=== PATIENT | male | born 1945 | race Caucasian/White ===

== ENCOUNTER 2017-10-12 20:46 | Emergency (ER) | payer MEDICARE, OTHER ==
[~2017-10-12] VITALS: Ht 188 cm; Wt 127.0 kg
[~2017-10-12 20:46] MED LIST: ACEASPCAF PO; ACET500 PO; ACETAMINOPHEN500 MG PO; ALLO300 PO; ASPI81CH PO; ASPI81EC PO; Ativan1 MG PO; CALCIUM 500 +1 EAC3 PO; CARV6.25 PO; CLOP75 PO; CLOT10 PO; DOCU100 PO; Excedrin Extra1 EACH PO; FURO40 PO; Ferrous Sulfat325 M2 PO; GABA800 PO; HYDPAM25 PO; HYDR454TO TOP; Hydrocodone-Ap1 EA20 PO; IBUP400 PO; IBUP600 PO; IBUPROFEN200 MG PO; INSR10I SC; INSULANPEN SC; INSULIN; Ketoconazole15 GM TOP; LAVAP17G PO; LIDO700A20 TOP; LUBRICANT 0.5-015 ML RIGHTEYE; METH5 PO; METO2.5 PO; METO25 PO; METO25ER PO; MIRT15 PO; Nitrostat0.4 MG SL; Norco 5-325 Ta1 EACH PO; Novolog Fl100 UNIT/1 INJ; OMEP10ER PO; OMEP20ER PO; OMEPRAZOLE MAGN20 MG PO; ONDA4 PO; PENVK500 PO; PERIDEX15 ML PO; POTCHL20ER PO; POTCIT10 PO; PREG75 PO; RANI150 PO; Roxicodone5 MG PO; SENN187 PO; SIMV10 PO; SPIR25 PO; SPIR50 PO; TOLN1TC TOP; TOLN45 TOP; TRAM50 PO; TRAZ100; ZOLP10 PO; [UNRECOGNIZED DRUG - OTHER] SC
[2017-10-12 21:48] LABS: BASOPHILS ABSOLUTE AUTO 0.06 K/mm3 (0.00-0.23); BASOPHILS PERCENT AUTO 1 % (0-2); EOSINOPHILS ABSOLUTE AUTO 0.07 K/mm3 (0.00-0.68); EOSINOPHILS PERCENT AUTO 1 % (0-6); Hematocrit 32.4 % (37.0-53.0); Hemoglobin 10.9 g/dL (13.5-17.5); IMMATURE GRAN ABSOLUTE AUTO 0.01 K/mm3 (0.00-0.10); IMMATURE GRAN PERCENT AUTO 0 % (0-1); LYMPHOCYTES ABSOLUTE AUTO 1.07 K/mm3 (0.84-5.20); LYMPHOCYTES PERCENT AUTO 17 % (21-46); MONOCYTES ABSOLUTE AUTO 0.59 K/mm3 (0.16-1.47); MONOCYTES PERCENT AUTO 9 % (4-13); Mean Corpuscular HGB 30.5 pg (26.0-34.0); Mean Corpuscular HGB Conc 33.6 g/dL (31.5-36.5); Mean Corpuscular Volume 91 fL (80-100); Mean Platelet Volume 12.2 fL (9.1-12.4); NEUTROPHILS ABSOLUTE AUTO 4.63 K/mm3 (1.96-9.15); NEUTROPHILS PERCENT AUTO 72 % (41-73); Platelet Count 77 K/mm3 (150-400); RDW Coefficient Variation 15.6 % (11.7-14.2); RDW Standard Deviation 51.4 fL (35.1-46.3); Red Blood Cell Count 3.57 M/mm3 (4.30-5.90); White Blood Cell Count 6.43 K/mm3 (4.00-11.30)
[2017-10-12 22:01] LABS: International Normalized Ratio 1.1; Prothrombin Time Results 11.5 Sec (9.7-11.5)
[2017-10-12 22:05] LABS: Alanine Aminotransfer (ALT/SGP 58 U/L (12-78); Albumin/Globulin Ratio 0.6 (0.8-1.8); Alk Phos 286 U/L (50-136); Anion Gap 4 mmol/L (6-16); Aspartate Aminotrans (AST/SGOT 54 U/L (12-37); Bilirubin, Total 1.2 mg/dL (0.1-1.0); Blood Urea Nitrogen 26 mg/dL (8-24); Bun/Creatinine Ratio 22.8 (12.0-20.0); CO2, Blood 27 mmol/L (21-32); Calcium, Blood 8.7 mg/dL (8.5-10.1); Chloride, Blood 102 mmol/L (98-108); Creatinine, Blood 1.14 mg/dL (0.60-1.20); Ethanol (Alcohol), Blood, Med <3 mg/dL; Globulin, Blood 5.4 g/dL (2.2-4.0); Glomerular Filtration Rate >60 (60-); Glucose, Blood 226 mg/dL (70-99); Potassium, Blood 4.4 mmol/L (3.5-5.5); Sodium, Blood 133 mmol/L (136-145); Total Protein, Blood 8.4 g/dL (6.4-8.2)
[2017-10-12 23:45] LABS: Source, Urine Clean Catch
[2017-10-12 23:48] LABS: Bilirubin, Urine Neg (Neg); Blood, Urine 2+ (Neg); Glucose Qualitative, Urine 2+ (Neg); Ketones, Urine Neg (Neg); Leukocyte Esterase, Urine 2+ (Neg); Nitrite, Urine Neg (Neg); Protein, Urine 2+ (Neg); Urobilinogen, Urine NORM (Normal)
[2017-10-12 23:49] LABS: Appearance, Urine Hazy (Clear); Color, Urine Amber (P-Yellow)
[2017-10-13 00:08] LABS: Bacteria Few /hpf; Red Blood Cells, Urine 0-2 /hpf (0-2); Squamous Epithelial Cells Rare /hpf (Few); White Blood Cells, Urine 25-50 /hpf (0-5); Yeast/Fungi Urine Many /hpf
[2017-10-13] MEDS ORDERED: Cipro500 MG PO (00:15)
[2018-02-13] MEDS ORDERED: ASPI81CH PO (16:29)
[2018-02-13] MEDS ORDERED: CALAMINE LOTIO177 ML (16:29)
[2018-02-13] MEDS ORDERED: ALLO300 PO (16:29)
[2018-02-13] MEDS ORDERED: ERGO400 PO (16:30)
[2018-02-13] MEDS ORDERED: CALCIUM 500 +1 EAC2 PO (16:31)
[2018-02-13] MEDS ORDERED: Ferrous Sulfat325 M2 PO (16:31)
[2018-02-13] MEDS ORDERED: FURO40 PO (16:31)
[2018-02-13] MEDS ORDERED: HYDHCL25 PO (16:32)
[2018-02-13] MEDS ORDERED: HUMALOG JU100 UNIT/1 (16:33)
[2018-02-13] MEDS ORDERED: HUMULIN 70100 UNIT/2 SC (16:33)
[2018-02-13] MEDS ORDERED: LACT10SY PO (16:34)
[2018-02-13] MEDS ORDERED: NORT25 PO (16:35)
[2018-02-13] MEDS ORDERED: LORA1SY PO (16:35)
[2018-02-13] MEDS ORDERED: MELA3 PO (16:35)
[2018-02-13] MEDS ORDERED: METO25 PO (16:35)
[2018-02-13] MEDS ORDERED: PREG75 PO (16:37)
[2018-02-13] MEDS ORDERED: PANT40 PO (16:37)
[2018-02-13] MEDS ORDERED: RIFA550T2 PO (16:37)
[2018-02-13] MEDS ORDERED: SIMV10 PO (16:38)
[2018-02-13] MEDS ORDERED: TAMS.4ER PO (16:38)
[2018-02-13] MEDS ORDERED: Bactrim Ds Tab1 EACH PO (16:38)
[2018-02-13] MEDS ORDERED: SPIR50 PO (16:38)
[2018-02-22] MEDS ORDERED: GAVILAX17 GM PO (10:30)
[2018-02-22] MEDS ORDERED: ONDA4ODT SL (10:31)
[2018-02-22] MEDS ORDERED: LIDOCAINE PAIN1 EACH TOP (10:39)
[2018-02-22] MEDS ORDERED: PANT40 PO (10:39)
[2018-02-22] MEDS ORDERED: ESCI5 PO (10:40)
[2018-02-22] MEDS ORDERED: CARV6.25 PO (10:41)
[2018-02-22] MEDS ORDERED: Senna Plus Tab1 EACH PO (10:41)
[2018-02-22] MEDS ORDERED: INSULANPEN SC (10:42)
== END 2017-10-13 01:05 | disposition home or self-care (01) ==
LOC: ER 20:46
PROVIDERS: Emergency Medicine; Nurse Practitioner Family
DX: S80.02XA Contusion of left knee, initial encounter (principal); N39.0 Urinary tract infection, site not specified; W05.0XXA Fall from non-moving wheelchair, initial encounter; Z88.8 Allergy status to other drugs, medicaments and biological substances; Z79.899 Other long term (current) drug therapy; Z79.82 Long term (current) use of aspirin; Z79.4 Long term (current) use of insulin; E11.9 Type 2 diabetes mellitus without complications; E78.00 Pure hypercholesterolemia, unspecified
CPT/HCPCS: 73564; 80053; 81001; 82140; 85025; 85610; 87086; 87106; 93005; 93010; 99283; G0480

== ENCOUNTER 2017-12-28 15:09 | Emergency (ER) | payer MEDICARE, OTHER ==
[~2017-12-28] VITALS: Ht 188 cm; Wt 136.1 kg
[~2017-12-28 15:09] MED LIST changes: +Cipro500 MG PO
[2017-12-28] MEDS ORDERED: Ultram50 MG PO (16:03)
[2017-12-28] MEDS ORDERED: Nortriptyline H10 MG PO (16:06)
[2017-12-28] MEDS ORDERED: Humulin N100 UNIT/1 SQ (16:06)
[2017-12-28] MEDS ORDERED: Lactulose10 GM/151 PO (16:06)
[2017-12-28] MEDS ORDERED: Spironolactone100 MG PO (16:07)
== END 2017-12-28 16:42 | disposition home or self-care (01) ==
LOC: ER 15:09
DX: S12.401A Unspecified nondisplaced fracture of fifth cervical vertebra, initial encounter for closed fracture (principal); S00.81XA Abrasion of other part of head, initial encounter; E11.9 Type 2 diabetes mellitus without complications; E78.5 Hyperlipidemia, unspecified; E66.01 Morbid (severe) obesity due to excess calories; I10 Essential (primary) hypertension; X58.XXXA Exposure to other specified factors, initial encounter
CPT/HCPCS: 70450; 72125; 99284

== ENCOUNTER 2018-02-04 03:17 | Emergency (ER) | payer MEDICARE ==
[~2018-02-04] VITALS: Ht 182.9 cm; Wt 122.5 kg
[~2018-02-04 03:17] MED LIST changes: +Humulin N100 UNIT/1 SQ; +Lactulose10 GM/151 PO; +Nortriptyline H10 MG PO; +Spironolactone100 MG PO; +Ultram50 MG PO
== END 2018-02-04 05:50 | disposition home or self-care (01) ==
LOC: ER 03:17
DX: M16.0 Bilateral primary osteoarthritis of hip (principal); E11.9 Type 2 diabetes mellitus without complications; I10 Essential (primary) hypertension; E78.5 Hyperlipidemia, unspecified; Z88.8 Allergy status to other drugs, medicaments and biological substances; Z79.899 Other long term (current) drug therapy; Z79.82 Long term (current) use of aspirin; Z79.4 Long term (current) use of insulin; W05.0XXA Fall from non-moving wheelchair, initial encounter
CPT/HCPCS: 36415; 73502

== ENCOUNTER 2018-03-13 14:50 | Emergency (ER) | payer MEDICARE ==
[~2018-03-13] VITALS: Ht 182.9 cm; Wt 122.5 kg
[~2018-03-13 14:50] MED LIST changes: +Bactrim Ds Tab1 EACH PO; +CALAMINE LOTIO177 ML; +CALCIUM 500 +1 EAC2 PO; +ERGO400 PO; +ESCI5 PO; +GAVILAX17 GM PO; +HUMALOG JU100 UNIT/1; +HUMULIN 70100 UNIT/2 SC; +HYDHCL25 PO; +LACT10SY PO; +LIDOCAINE PAIN1 EACH TOP; +LORA1SY PO; +MELA3 PO; +NORT25 PO; +ONDA4ODT SL; +PANT40 PO; +RIFA550T2 PO; +Senna Plus Tab1 EACH PO; +TAMS.4ER PO
[2018-03-14] MEDS ORDERED: Percocet 5-3251 EACH PO (02:18)
== END 2018-03-13 15:50 | disposition home or self-care (01) ==
LOC: ER 14:50
DX: S80.212A Abrasion, left knee, initial encounter (principal); S00.81XA Abrasion of other part of head, initial encounter; L30.9 Dermatitis, unspecified; E11.9 Type 2 diabetes mellitus without complications; E78.00 Pure hypercholesterolemia, unspecified; Z88.8 Allergy status to other drugs, medicaments and biological substances; Z91.048 Other nonmedicinal substance allergy status; Z91.040 Latex allergy status; Z88.5 Allergy status to narcotic agent; Z79.82 Long term (current) use of aspirin; Z79.4 Long term (current) use of insulin; Z79.899 Other long term (current) drug therapy; W01.0XXA Fall on same level from slipping, tripping and stumbling without subsequent striking against object, initial encounter
CPT/HCPCS: 99283

== ENCOUNTER 2018-03-13 22:11 | Emergency (ER) | payer MEDICARE ==
[~2018-03-13] VITALS: Ht 182.9 cm; Wt 122.5 kg
[2018-03-13 23:42] LABS: BASOPHILS ABSOLUTE AUTO 0.05 K/mm3 (0.00-0.23); BASOPHILS PERCENT AUTO 1 % (0-2); EOSINOPHILS ABSOLUTE AUTO 0.94 K/mm3 (0.00-0.68); EOSINOPHILS PERCENT AUTO 9 % (0-6); Hematocrit 29.3 % (37.0-53.0); IMMATURE GRAN ABSOLUTE AUTO 0.03 K/mm3 (0.00-0.10); IMMATURE GRAN PERCENT AUTO 0 % (0-1); LYMPHOCYTES ABSOLUTE AUTO 1.09 K/mm3 (0.84-5.20); LYMPHOCYTES PERCENT AUTO 11 % (21-46); MONOCYTES ABSOLUTE AUTO 0.97 K/mm3 (0.16-1.47); MONOCYTES PERCENT AUTO 9 % (4-13); Mean Corpuscular HGB 32.4 pg (26.0-34.0); Mean Corpuscular HGB Conc 34.1 g/dL (31.5-36.5); Mean Corpuscular Volume 95 fL (80-100); Mean Platelet Volume 10.6 fL (9.1-12.4); NEUTROPHILS ABSOLUTE AUTO 7.29 K/mm3 (1.96-9.15); NEUTROPHILS PERCENT AUTO 70 % (41-73); Platelet Count 116 K/mm3 (150-400); RDW Coefficient Variation 14.9 % (11.7-14.2); Red Blood Cell Count 3.09 M/mm3 (4.30-5.90); White Blood Cell Count 10.37 K/mm3 (4.00-11.30)
[2018-03-14 00:02] LABS: Alanine Aminotransfer (ALT/SGP 23 U/L (12-78); Albumin, Blood 2.1 g/dL (3.4-5.0); Albumin/Globulin Ratio 0.5 (0.8-1.8); Alk Phos 221 U/L (50-136); Anion Gap 6 mmol/L (6-16); Aspartate Aminotrans (AST/SGOT 27 U/L (12-37); Blood Urea Nitrogen 15 mg/dL (8-24); Bun/Creatinine Ratio 13.6 (12.0-20.0); CO2, Blood 26 mmol/L (21-32); Calcium, Blood 7.5 mg/dL (8.5-10.1); Chloride, Blood 106 mmol/L (98-108); Globulin, Blood 4.2 g/dL (2.2-4.0); Glomerular Filtration Rate >60 (60-); Glucose, Blood 195 mg/dL (70-99); Potassium, Blood 4.8 mmol/L (3.5-5.5); Sodium, Blood 138 mmol/L (136-145); Total Protein, Blood 6.3 g/dL (6.4-8.2)
[2018-03-14] MEDS ORDERED: Percocet 5-3251 EACH PO (02:18)
== END 2018-03-14 03:13 | disposition home or self-care (01) ==
LOC: ER 22:11
PROVIDERS: Emergency Medicine
DX: S81.812A Laceration without foreign body, left lower leg, initial encounter (principal); S80.212A Abrasion, left knee, initial encounter; S00.81XA Abrasion of other part of head, initial encounter; M54.5 Low back pain; G89.29 Other chronic pain; W05.0XXA Fall from non-moving wheelchair, initial encounter; Z88.8 Allergy status to other drugs, medicaments and biological substances; Z91.040 Latex allergy status; Z88.5 Allergy status to narcotic agent; Z79.899 Other long term (current) drug therapy; Z79.82 Long term (current) use of aspirin; Z79.4 Long term (current) use of insulin; E11.9 Type 2 diabetes mellitus without complications; E78.5 Hyperlipidemia, unspecified
CPT/HCPCS: 70450; 72100; 72125; 73562-LT; 80053; 85025; 96374; 99284-25; J2405; J3010

== ENCOUNTER 2018-03-14 21:24 | Emergency (ER) | payer MEDICARE ==
[~2018-03-14] VITALS: Ht 182.9 cm; Wt 122.5 kg
[~2018-03-14 21:24] MED LIST changes: +Percocet 5-3251 EACH PO
== END 2018-03-14 22:40 | disposition home or self-care (01) ==
LOC: ER 21:24
DX: H60.92 Unspecified otitis externa, left ear (principal); Z88.8 Allergy status to other drugs, medicaments and biological substances; Z91.048 Other nonmedicinal substance allergy status; Z91.041 Radiographic dye allergy status; Z88.5 Allergy status to narcotic agent; Z79.82 Long term (current) use of aspirin; Z79.899 Other long term (current) drug therapy; Z79.4 Long term (current) use of insulin; E11.9 Type 2 diabetes mellitus without complications; E78.5 Hyperlipidemia, unspecified
CPT/HCPCS: 36415; 93005; 93010; 99282-25

== ENCOUNTER 2018-03-27 17:57 | Emergency (ER) | payer MEDICARE ==
[~2018-03-27] VITALS: Ht 182.9 cm; Wt 113.4 kg
== END 2018-03-27 21:40 | disposition home or self-care (01) ==
LOC: ER 17:57
DX: S80.02XA Contusion of left knee, initial encounter (principal); E78.00 Pure hypercholesterolemia, unspecified; E11.9 Type 2 diabetes mellitus without complications; Z88.8 Allergy status to other drugs, medicaments and biological substances; Z91.048 Other nonmedicinal substance allergy status; Z91.040 Latex allergy status; Z88.5 Allergy status to narcotic agent; Z79.899 Other long term (current) drug therapy; Z79.82 Long term (current) use of aspirin; Z79.4 Long term (current) use of insulin; W07.XXXA Fall from chair, initial encounter
CPT/HCPCS: 72125; 73562-LT; 99284-25

== ENCOUNTER 2018-06-23 10:02 | Inpatient (IN) | payer MEDICARE ==
[~2018-06-23] VITALS: Ht 182.9 cm; Wt 119.5 kg
[2018-06-23] MEDS ORDERED: HYDHCL25 PO (10:36)
[2018-06-23] MEDS ORDERED: LACT10SY (10:37)
[2018-06-23] MEDS ORDERED: CLARITIN10 MG PO (10:39)
[2018-06-23] MEDS ORDERED: METO25ER PO (10:40)
[2018-06-23 10:56] LABS: BASOPHILS ABSOLUTE AUTO 0.07 K/mm3 (0.00-0.23); BASOPHILS PERCENT AUTO 1 % (0-2); EOSINOPHILS ABSOLUTE AUTO 0.12 K/mm3 (0.00-0.68); EOSINOPHILS PERCENT AUTO 2 % (0-6); Hematocrit 31.8 % (37.0-53.0); Hemoglobin 10.3 g/dL (13.5-17.5); IMMATURE GRAN ABSOLUTE AUTO 0.02 K/mm3 (0.00-0.10); IMMATURE GRAN PERCENT AUTO 0 % (0-1); LYMPHOCYTES ABSOLUTE AUTO 0.82 K/mm3 (0.84-5.20); LYMPHOCYTES PERCENT AUTO 15 % (21-46); MONOCYTES ABSOLUTE AUTO 0.48 K/mm3 (0.16-1.47); MONOCYTES PERCENT AUTO 9 % (4-13); Mean Corpuscular HGB 31.6 pg (26.0-34.0); Mean Corpuscular HGB Conc 32.4 g/dL (31.5-36.5); Mean Corpuscular Volume 98 fL (80-100); Mean Platelet Volume 11.2 fL (9.1-12.4); NEUTROPHILS ABSOLUTE AUTO 4.15 K/mm3 (1.96-9.15); NEUTROPHILS PERCENT AUTO 73 % (41-73); Platelet Count 66 K/mm3 (150-400); RDW Coefficient Variation 13.3 % (11.7-14.2); RDW Standard Deviation 47.8 fL (35.1-46.3); Red Blood Cell Count 3.26 M/mm3 (4.30-5.90); White Blood Cell Count 5.66 K/mm3 (4.00-11.30)
[2018-06-23 11:06] LABS: Alanine Aminotransfer (ALT/SGP 18 U/L (12-78); Albumin, Blood 2.3 g/dL (3.4-5.0); Albumin/Globulin Ratio 0.5 (0.8-1.8); Alk Phos 151 U/L (50-136); Anion Gap 6 mmol/L (6-16); Aspartate Aminotrans (AST/SGOT 29 U/L (12-37); Bilirubin, Total 1.4 mg/dL (0.1-1.0); Blood Urea Nitrogen 23 mg/dL (8-24); Bun/Creatinine Ratio 14.4 (12.0-20.0); CO2, Blood 25 mmol/L (21-32); Calcium, Blood 8.2 mg/dL (8.5-10.1); Chloride, Blood 106 mmol/L (98-108); Ethanol (Alcohol), Blood, Med <3 mg/dL; Globulin, Blood 4.4 g/dL (2.2-4.0); Glomerular Filtration Rate 45 (60-); Glucose, Blood 197 mg/dL (70-99); Magnesium, Blood 1.8 mg/dL (1.6-2.4); Potassium, Blood 4.6 mmol/L (3.5-5.5); Sodium, Blood 137 mmol/L (136-145); Total Protein, Blood 6.7 g/dL (6.4-8.2)
[2018-06-23 11:08] LABS: International Normalized Ratio 1.11; Prothrombin Time Results 11.4 Sec (9.7-11.5)
[2018-06-24 07:43] LABS: Anion Gap 8 mmol/L (6-16); Blood Urea Nitrogen 24 mg/dL (8-24); Bun/Creatinine Ratio 15.4 (12.0-20.0); CO2, Blood 22 mmol/L (21-32); Calcium, Blood 7.5 mg/dL (8.5-10.1); Chloride, Blood 108 mmol/L (98-108); Creatinine, Blood 1.56 mg/dL (0.60-1.20); Glomerular Filtration Rate 46 (60-); Glucose, Blood 159 mg/dL (70-99); Phosphorus, Blood 2.9 mg/dL (2.5-4.9); Potassium, Blood 4.7 mmol/L (3.5-5.5); Sodium, Blood 138 mmol/L (136-145)
[2018-06-24 07:45] LABS: BASOPHILS ABSOLUTE AUTO 0.06 K/mm3 (0.00-0.23); BASOPHILS PERCENT AUTO 1 % (0-2); EOSINOPHILS ABSOLUTE AUTO 0.14 K/mm3 (0.00-0.68); EOSINOPHILS PERCENT AUTO 3 % (0-6); Hematocrit 27.8 % (37.0-53.0); Hemoglobin 9.1 g/dL (13.5-17.5); IMMATURE GRAN ABSOLUTE AUTO 0.02 K/mm3 (0.00-0.10); IMMATURE GRAN PERCENT AUTO 0 % (0-1); LYMPHOCYTES ABSOLUTE AUTO 1.05 K/mm3 (0.84-5.20); LYMPHOCYTES PERCENT AUTO 21 % (21-46); MONOCYTES ABSOLUTE AUTO 0.54 K/mm3 (0.16-1.47); MONOCYTES PERCENT AUTO 11 % (4-13); Mean Corpuscular HGB 31.2 pg (26.0-34.0); Mean Corpuscular HGB Conc 32.7 g/dL (31.5-36.5); Mean Platelet Volume 11.5 fL (9.1-12.4); NEUTROPHILS ABSOLUTE AUTO 3.15 K/mm3 (1.96-9.15); NEUTROPHILS PERCENT AUTO 64 % (41-73); Platelet Count 52 K/mm3 (150-400); RDW Coefficient Variation 13.5 % (11.7-14.2); Red Blood Cell Count 2.92 M/mm3 (4.30-5.90); White Blood Cell Count 4.96 K/mm3 (4.00-11.30)
[2018-06-24 07:55] LABS: Mean Corpuscular Volume 95 fL (80-100)
[2018-06-24 10:17] LABS: Percent Saturation 23.7 % (20.0-50.0)
[2018-06-26 05:33] LABS: Bun/Creatinine Ratio 14.3 (12.0-20.0); Calcium, Blood 7.8 mg/dL (8.5-10.1); Creatinine, Blood 1.4 mg/dL (0.60-1.20)
[2018-06-27 05:24] LABS: Bun/Creatinine Ratio 14.5 (12.0-20.0); Calcium, Blood 7.8 mg/dL (8.5-10.1); Creatinine, Blood 1.31 mg/dL (0.60-1.20); Potassium, Blood 5.2 mmol/L (3.5-5.5)
[2018-06-28 05:23] LABS: Anion Gap 3 mmol/L (6-16); Blood Urea Nitrogen 18 mg/dL (8-24); Bun/Creatinine Ratio 13.2 (12.0-20.0); CO2, Blood 24 mmol/L (21-32); Calcium, Blood 7.8 mg/dL (8.5-10.1); Chloride, Blood 112 mmol/L (98-108); Creatinine, Blood 1.36 mg/dL (0.60-1.20); Glomerular Filtration Rate 54 (60-); Glucose, Blood 120 mg/dL (70-99); Phosphorus, Blood 2.7 mg/dL (2.5-4.9); Potassium, Blood 5.2 mmol/L (3.5-5.5); Sodium, Blood 139 mmol/L (136-145)
[2018-07-01 04:29] LABS: BASOPHILS ABSOLUTE AUTO 0.09 K/mm3 (0.00-0.23); BASOPHILS PERCENT AUTO 1 % (0-2); EOSINOPHILS ABSOLUTE AUTO 0.25 K/mm3 (0.00-0.68); EOSINOPHILS PERCENT AUTO 4 % (0-6); Hematocrit 32.5 % (37.0-53.0); Hemoglobin 10.5 g/dL (13.5-17.5); IMMATURE GRAN ABSOLUTE AUTO 0.01 K/mm3 (0.00-0.10); IMMATURE GRAN PERCENT AUTO 0 % (0-1); LYMPHOCYTES ABSOLUTE AUTO 1.17 K/mm3 (0.84-5.20); LYMPHOCYTES PERCENT AUTO 18 % (21-46); MONOCYTES ABSOLUTE AUTO 0.66 K/mm3 (0.16-1.47); MONOCYTES PERCENT AUTO 10 % (4-13); Mean Corpuscular HGB Conc 32.3 g/dL (31.5-36.5); Mean Platelet Volume 11.9 fL (9.1-12.4); NEUTROPHILS ABSOLUTE AUTO 4.48 K/mm3 (1.96-9.15); NEUTROPHILS PERCENT AUTO 67 % (41-73); Platelet Count 79 K/mm3 (150-400); RDW Coefficient Variation 13.6 % (11.7-14.2); RDW Standard Deviation 49.4 fL (35.1-46.3); Red Blood Cell Count 3.28 M/mm3 (4.30-5.90); White Blood Cell Count 6.66 K/mm3 (4.00-11.30)
[2018-07-01 04:31] LABS: Mean Corpuscular Volume 99 fL (80-100)
[2018-07-01 04:41] LABS: Albumin, Blood 2.5 g/dL (3.4-5.0); Anion Gap 10 mmol/L (6-16); Blood Urea Nitrogen 20 mg/dL (8-24); Bun/Creatinine Ratio 14.5 (12.0-20.0); CO2, Blood 18 mmol/L (21-32); Calcium, Blood 8.1 mg/dL (8.5-10.1); Chloride, Blood 109 mmol/L (98-108); Creatinine, Blood 1.38 mg/dL (0.60-1.20); Glomerular Filtration Rate 53 (60-); Glucose, Blood 122 mg/dL (70-99); Phosphorus, Blood 2.7 mg/dL (2.5-4.9); Potassium, Blood 5.3 mmol/L (3.5-5.5); Sodium, Blood 137 mmol/L (136-145)
[2018-07-02 05:00] LABS: BASOPHILS ABSOLUTE AUTO 0.07 K/mm3 (0.00-0.23); BASOPHILS PERCENT AUTO 2 % (0-2); EOSINOPHILS ABSOLUTE AUTO 0.21 K/mm3 (0.00-0.68); EOSINOPHILS PERCENT AUTO 5 % (0-6); Hematocrit 27.5 % (37.0-53.0); IMMATURE GRAN ABSOLUTE AUTO 0.02 K/mm3 (0.00-0.10); IMMATURE GRAN PERCENT AUTO 1 % (0-1); LYMPHOCYTES ABSOLUTE AUTO 0.92 K/mm3 (0.84-5.20); LYMPHOCYTES PERCENT AUTO 22 % (21-46); MONOCYTES ABSOLUTE AUTO 0.42 K/mm3 (0.16-1.47); MONOCYTES PERCENT AUTO 10 % (4-13); Mean Corpuscular HGB 31.7 pg (26.0-34.0); Mean Corpuscular HGB Conc 32.7 g/dL (31.5-36.5); Mean Corpuscular Volume 97 fL (80-100); Mean Platelet Volume 11.5 fL (9.1-12.4); NEUTROPHILS PERCENT AUTO 61 % (41-73); Platelet Count 69 K/mm3 (150-400); RDW Coefficient Variation 13.4 % (11.7-14.2); Red Blood Cell Count 2.84 M/mm3 (4.30-5.90); White Blood Cell Count 4.24 K/mm3 (4.00-11.30)
[2018-07-02 05:14] LABS: Albumin, Blood 2.3 g/dL (3.4-5.0); Anion Gap 6 mmol/L (6-16); Blood Urea Nitrogen 22 mg/dL (8-24); Bun/Creatinine Ratio 17.1 (12.0-20.0); CO2, Blood 22 mmol/L (21-32); Chloride, Blood 110 mmol/L (98-108); Creatinine, Blood 1.29 mg/dL (0.60-1.20); Glomerular Filtration Rate 58 (60-); Glucose, Blood 121 mg/dL (70-99); Phosphorus, Blood 3.1 mg/dL (2.5-4.9); Potassium, Blood 5.2 mmol/L (3.5-5.5); Sodium, Blood 138 mmol/L (136-145)
[2018-07-03 05:32] LABS: Albumin, Blood 2.2 g/dL (3.4-5.0); Anion Gap 6 mmol/L (6-16); Blood Urea Nitrogen 21 mg/dL (8-24); Bun/Creatinine Ratio 16.7 (12.0-20.0); CO2, Blood 22 mmol/L (21-32); Calcium, Blood 7.8 mg/dL (8.5-10.1); Chloride, Blood 109 mmol/L (98-108); Creatinine, Blood 1.26 mg/dL (0.60-1.20); Glomerular Filtration Rate 59 (60-); Glucose, Blood 136 mg/dL (70-99); Phosphorus, Blood 3.3 mg/dL (2.5-4.9); Potassium, Blood 5.5 mmol/L (3.5-5.5); Sodium, Blood 137 mmol/L (136-145)
[2018-07-05 06:20] LABS: Bun/Creatinine Ratio 16.5 (12.0-20.0); Calcium, Blood 7.7 mg/dL (8.5-10.1); Creatinine, Blood 1.27 mg/dL (0.60-1.20); Potassium, Blood 4.9 mmol/L (3.5-5.5)
[2018-07-05] MEDS ORDERED: LACT10SY PO (12:41)
[2018-07-05] MEDS ORDERED: METO25ER (12:47)
[2018-07-05] MEDS ORDERED: Nystop60 GM (12:51)
== END 2018-07-05 18:00 | disposition home or self-care (01) | DRG 683 ==
LOC: ER 10:02 → ERHOLD 10:03 → MEDS 16:22 → ERHOLD 16:23 → MEDS 18:23 → ENPENDDIS 07-05 11:06 → MEDS 07-05 18:00
PROVIDERS: Emergency Medicine; Family Medicine; Hospitalist; Internal Medicine
PROC: 0W9G3ZZ Drainage of Peritoneal Cavity, Percutaneous Approach (ICD-10-PCS; principal; 2018-06-28)
DX: N17.9 Acute kidney failure, unspecified (principal); R18.8 Other ascites; K52.1 Toxic gastroenteritis and colitis; E72.20 Disorder of urea cycle metabolism, unspecified; D69.59 Other secondary thrombocytopenia; E11.40 Type 2 diabetes mellitus with diabetic neuropathy, unspecified; E86.0 Dehydration; F44.4 Conversion disorder with motor symptom or deficit; R13.10 Dysphagia, unspecified; K74.60 Unspecified cirrhosis of liver; E11.22 Type 2 diabetes mellitus with diabetic chronic kidney disease; D63.1 Anemia in chronic kidney disease; I95.1 Orthostatic hypotension; N18.3 Chronic kidney disease, stage 3 (moderate); I25.10 Atherosclerotic heart disease of native coronary artery without angina pectoris; M25.562 Pain in left knee; R53.1 Weakness; E66.9 Obesity, unspecified; I12.9 Hypertensive chronic kidney disease with stage 1 through stage 4 chronic kidney disease, or unspecified chronic kidney disease; T47.3X5A Adverse effect of saline and osmotic laxatives, initial encounter; G89.29 Other chronic pain; R06.02 Shortness of breath; M19.90 Unspecified osteoarthritis, unspecified site; N40.0 Benign prostatic hyperplasia without lower urinary tract symptoms; Z66 Do not resuscitate; Z68.37 Body mass index [BMI] 37.0-37.9, adult; Z79.4 Long term (current) use of insulin; Z91.040 Latex allergy status; Z88.8 Allergy status to other drugs, medicaments and biological substances; Z91.048 Other nonmedicinal substance allergy status; Z90.49 Acquired absence of other specified parts of digestive tract; Z87.442 Personal history of urinary calculi; Z95.5 Presence of coronary angioplasty implant and graft; Z91.14 Patient's other noncompliance with medication regimen
CPT/HCPCS: 36415; 49083; 73562-LT; 80048; 80053; 80069; 82140; 82607; 82728; 82947; 83540; 83550; 83735; 85025; 85610; 87493; 93005; 93010; 97110; 97116; 97162; 97166; 97530; 97535; 99285-25; C8929; G0480; G8978; G8979; G8987; G8988; J1650; J1815; J3420; J7030; P9041; Q9957

== ENCOUNTER 2018-11-04 04:04 | Emergency (ER) | payer MEDICARE ==
[~2018-11-04] VITALS: Ht 182.9 cm; Wt 117.9 kg
[~2018-11-04 04:04] MED LIST changes: +CLARITIN10 MG PO; +LACT10SY; +METO25ER; +Nystop60 GM
[2018-11-04 08:25] LABS: BASOPHILS ABSOLUTE AUTO 0.09 K/mm3 (0.00-0.23); BASOPHILS PERCENT AUTO 1 % (0-2); EOSINOPHILS ABSOLUTE AUTO 0.17 K/mm3 (0.00-0.68); EOSINOPHILS PERCENT AUTO 3 % (0-6); Hematocrit 29.5 % (37.0-53.0); Hemoglobin 9.7 g/dL (13.5-17.5); IMMATURE GRAN ABSOLUTE AUTO 0.01 K/mm3 (0.00-0.10); IMMATURE GRAN PERCENT AUTO 0 % (0-1); LYMPHOCYTES ABSOLUTE AUTO 0.89 K/mm3 (0.84-5.20); LYMPHOCYTES PERCENT AUTO 14 % (21-46); MONOCYTES ABSOLUTE AUTO 0.69 K/mm3 (0.16-1.47); MONOCYTES PERCENT AUTO 11 % (4-13); Mean Corpuscular HGB 32.3 pg (26.0-34.0); Mean Corpuscular HGB Conc 32.9 g/dL (31.5-36.5); Mean Corpuscular Volume 98 fL (80-100); Mean Platelet Volume 11.3 fL (9.1-12.4); NEUTROPHILS ABSOLUTE AUTO 4.65 K/mm3 (1.96-9.15); NEUTROPHILS PERCENT AUTO 72 % (41-73); Platelet Count 77 K/mm3 (150-400); RDW Coefficient Variation 15.8 % (11.7-14.2)
[2018-11-04 08:34] LABS: International Normalized Ratio 1.11; Prothrombin Time Results 11.7 Sec (9.7-11.5)
[2018-11-04 08:44] LABS: Albumin, Blood 2.8 g/dL (3.4-5.0); Albumin/Globulin Ratio 0.7 (0.8-1.8); Calcium, Blood 8.2 mg/dL (8.5-10.1); Creatinine, Blood 2.27 mg/dL (0.60-1.20); Globulin, Blood 4.3 g/dL (2.2-4.0); Potassium, Blood 3.7 mmol/L (3.5-5.5); Total Protein, Blood 7.1 g/dL (6.4-8.2)
== END 2018-11-04 20:17 | disposition home or self-care (01) ==
LOC: ER 04:04
PROVIDERS: Physician Assistant
DX: R18.8 Other ascites (principal); R06.02 Shortness of breath; E11.9 Type 2 diabetes mellitus without complications; E78.5 Hyperlipidemia, unspecified; I25.10 Atherosclerotic heart disease of native coronary artery without angina pectoris; Z91.040 Latex allergy status; Z88.8 Allergy status to other drugs, medicaments and biological substances; Z91.048 Other nonmedicinal substance allergy status; Z88.5 Allergy status to narcotic agent; Z79.899 Other long term (current) drug therapy; Z79.4 Long term (current) use of insulin
CPT/HCPCS: 36415; 49083; 80053; 85025; 85610; P9045; P9046

== ENCOUNTER 2018-11-08 10:37 | Emergency (ER) | payer MEDICARE ==
[~2018-11-08] VITALS: Ht 182.9 cm; Wt 117.9 kg
[2018-11-08 11:12] LABS: BASOPHILS ABSOLUTE AUTO 0.09 K/mm3 (0.00-0.23); BASOPHILS PERCENT AUTO 1 % (0-2); EOSINOPHILS ABSOLUTE AUTO 0.33 K/mm3 (0.00-0.68); EOSINOPHILS PERCENT AUTO 4 % (0-6); Hemoglobin 9.2 g/dL (13.5-17.5); IMMATURE GRAN ABSOLUTE AUTO 0.02 K/mm3 (0.00-0.10); IMMATURE GRAN PERCENT AUTO 0 % (0-1); LYMPHOCYTES ABSOLUTE AUTO 1.22 K/mm3 (0.84-5.20); LYMPHOCYTES PERCENT AUTO 14 % (21-46); MONOCYTES ABSOLUTE AUTO 1.04 K/mm3 (0.16-1.47); MONOCYTES PERCENT AUTO 12 % (4-13); Mean Corpuscular HGB 32.3 pg (26.0-34.0); Mean Corpuscular HGB Conc 32.9 g/dL (31.5-36.5); Mean Corpuscular Volume 98 fL (80-100); Mean Platelet Volume 11.2 fL (9.1-12.4); NEUTROPHILS PERCENT AUTO 68 % (41-73); Platelet Count 90 K/mm3 (150-400); RDW Coefficient Variation 15.7 % (11.7-14.2); RDW Standard Deviation 56.6 fL (35.1-46.3); Red Blood Cell Count 2.85 M/mm3 (4.30-5.90)
[2018-11-08 11:26] LABS: International Normalized Ratio 1.19; Prothrombin Time Results 12.4 Sec (9.7-11.5)
[2018-11-08 11:30] LABS: Albumin, Blood 2.4 g/dL (3.4-5.0); Albumin/Globulin Ratio 0.6 (0.8-1.8); Bilirubin, Total 0.9 mg/dL (0.1-1.0); Bun/Creatinine Ratio 13.6 (12.0-20.0); Calcium, Blood 8.1 mg/dL (8.5-10.1); Creatinine, Blood 2.13 mg/dL (0.60-1.20); Potassium, Blood 4.3 mmol/L (3.5-5.5); Total Protein, Blood 6.4 g/dL (6.4-8.2)
[2018-11-08] MEDS ORDERED: DOC250 PO (14:02)
[2018-11-08] MEDS ORDERED: FURO40 PO (14:02)
[2018-11-08] MEDS ORDERED: HYDHCL25 PO (14:03)
[2018-11-08] MEDS ORDERED: Novolog100 UNIT/2 SC (14:03)
[2018-11-08] MEDS ORDERED: Lopressor 25 mg25 MG PO (14:04)
[2018-11-08] MEDS ORDERED: Loratadine10 MG PO (14:04)
[2018-11-08] MEDS ORDERED: LACT10SY PO (14:04)
[2018-11-08] MEDS ORDERED: Nortriptyline H10 MG PO (14:04)
[2018-11-08] MEDS ORDERED: PANT40 PO (14:05)
[2018-11-08] MEDS ORDERED: POTCIT10 PO (14:05)
[2018-11-08] MEDS ORDERED: Xifaxan200 MG PO (14:06)
[2018-11-08] MEDS ORDERED: SPIR50 PO (14:06)
[2018-11-08] MEDS ORDERED: TAMS.4ER PO (14:06)
[2018-11-08] MEDS ORDERED: SENN187 PO (14:06)
== END 2018-11-08 17:17 | disposition home or self-care (01) ==
LOC: ER 10:37
PROVIDERS: Emergency Medicine
DX: R18.8 Other ascites (principal); E11.9 Type 2 diabetes mellitus without complications; E78.5 Hyperlipidemia, unspecified
CPT/HCPCS: 49083; 80053; 85025; 85610; 85730; 93005; 93010; 96365; 99284-25; P9046

== ENCOUNTER 2019-01-03 16:04 | Inpatient (IN) | payer MEDICARE ==
[~2019-01-03] VITALS: Ht 182.9 cm; Wt 123.0 kg
[~2019-01-03 16:04] MED LIST changes: +Lopressor 25 mg25 MG PO; +Loratadine10 MG PO
[2019-01-03 16:42] LABS: BASOPHILS PERCENT AUTO 1 % (0-2); EOSINOPHILS ABSOLUTE AUTO 0.14 K/mm3 (0.00-0.68); EOSINOPHILS PERCENT AUTO 1 % (0-6); Hematocrit 28.9 % (37.0-53.0); Hemoglobin 9.5 g/dL (13.5-17.5); IMMATURE GRAN ABSOLUTE AUTO 0.05 K/mm3 (0.00-0.10); IMMATURE GRAN PERCENT AUTO 1 % (0-1); LYMPHOCYTES ABSOLUTE AUTO 0.62 K/mm3 (0.84-5.20); LYMPHOCYTES PERCENT AUTO 6 % (21-46); MONOCYTES ABSOLUTE AUTO 1.07 K/mm3 (0.16-1.47); MONOCYTES PERCENT AUTO 11 % (4-13); Mean Corpuscular HGB 31.7 pg (26.0-34.0); Mean Corpuscular HGB Conc 32.9 g/dL (31.5-36.5); Mean Corpuscular Volume 96 fL (80-100); NEUTROPHILS ABSOLUTE AUTO 8.11 K/mm3 (1.96-9.15); NEUTROPHILS PERCENT AUTO 80 % (41-73); Platelet Count 106 K/mm3 (150-400); RDW Coefficient Variation 12.9 % (11.7-14.2); RDW Standard Deviation 45.4 fL (35.1-46.3); White Blood Cell Count 10.09 K/mm3 (4.00-11.30)
[2019-01-03 16:55] LABS: Source, Urine Catheter
[2019-01-03 16:58] LABS: Bilirubin, Urine Neg (Neg); Blood, Urine Neg (Neg); Glucose Qualitative, Urine Neg (Neg); Ketones, Urine Neg (Neg); Leukocyte Esterase, Urine 1+ (Neg); Nitrite, Urine Neg (Neg); Protein, Urine Neg (Neg); Urobilinogen, Urine NORM (Normal)
[2019-01-03 17:01] LABS: International Normalized Ratio 1.07; Prothrombin Time Results 11.3 Sec (9.7-11.5)
[2019-01-03 17:11] LABS: Appearance, Urine Hazy (Clear); Color, Urine Pale Yellow (P-Yellow)
[2019-01-03 17:12] LABS: Red Blood Cells, Urine 0-2 /hpf (0-2); Squamous Epithelial Cells Not Seen /hpf (Few)
[2019-01-03 17:13] LABS: Bacteria Not Seen /hpf
[2019-01-03 17:15] LABS: Albumin, Blood 2.7 g/dL (3.4-5.0); Albumin/Globulin Ratio 0.6 (0.8-1.8); Bilirubin, Total 0.7 mg/dL (0.1-1.0); Bun/Creatinine Ratio 20.4 (12.0-20.0); Creatine Kinase MB 1.1 ng/mL (0.0-3.6); Creatine Kinase MB Index 3.1 (0.0-4.0); Creatinine, Blood 2.45 mg/dL (0.60-1.20); Globulin, Blood 4.8 g/dL (2.2-4.0); Potassium, Blood 5.8 mmol/L (3.5-5.5); Total Protein, Blood 7.5 g/dL (6.4-8.2)
[2019-01-03] MEDS ORDERED: BUME2 PO (17:57)
[2019-01-03] MEDS ORDERED: BUME1 PO (17:57)
[2019-01-03] MEDS ORDERED: DOC250 PO (17:58)
[2019-01-03] MEDS ORDERED: CIPR500 PO (17:58)
[2019-01-03] MEDS ORDERED: VITAMIN D250000 UNIT PO (17:59)
[2019-01-03] MEDS ORDERED: Ferrous Sulfat325 M2 PO (17:59)
[2019-01-03] MEDS ORDERED: FOLI1 PO (18:00)
[2019-01-03] MEDS ORDERED: HYDHCL25 PO (18:01)
[2019-01-03] MEDS ORDERED: Novolog100 UNIT/2 SC (18:03)
[2019-01-03] MEDS ORDERED: INSULANPEN SC (18:04)
[2019-01-03] MEDS ORDERED: LACT10SY PO (18:04)
[2019-01-03] MEDS ORDERED: POTCIT10 PO (18:07)
[2019-01-03] MEDS ORDERED: PANT40 PO (18:07)
[2019-01-03] MEDS ORDERED: PREG100 PO (18:08)
[2019-01-03] MEDS ORDERED: SPIR50 PO (18:09)
[2019-01-03 19:03] LABS: Phosphorus, Blood 5.3 mg/dL (2.5-4.9); Troponin I <0.015 ng/mL (0.000-0.040)
[2019-01-03 21:49] LABS: U Amphetamine Screen Not Detected; U Barbituate Screen Not Detected; U Benzodiazapine Screen Not Detected; U Buprenorphine Screen Not Detected; U Cannabinoids Screen Not Detected; U Cocaine Screen Not Detected; U Methadone Screen Not Detected; U Methamphetamine Screen Not Detected; U Opiates Screen Not Detected; U Oxycodone Screen Not Detected; U Phencyclidine Screen Not Detected; U Propoxyphene Screen Not Detected
--- NOTE | 2019-01-03 22:04 | NUR ---
ASSUMED PT CARE AT 2024 PT ARRIVED ON UNIT VIA STRETCHER. ALERT AND ORIENTED; ABLE TO MAKE NEEDS KNOWN. VERY DEMANDING AT FIRST; HOWEVER, ONCE PT WAS SETTLED IN HE BECAME VERY PLEASANT AND COOPERATIVE WITH CARE. ABLE TO ANSWER QUESTIONS APPROPRIATELY. STATED HE WAS VERY HUNGRY AND WOULD LIKE SOMETHING TO EAT. AFTER CHECKING BLOOD SUGAR; OBTAINED PT A YOGURT, PUDDING, FRUIT, AND A SLICE OF CHEESE, WELL WATER AND CRANBERRY JUICE; PT CONSUMED 100%. THEREFORE, ADMINISTERED FULL DOSE OF LONG ACTING INSULIN, WELL 3 UNITS OF REGULAR INSULIN. UNABLE TO OBTAIN ACCURATE RHYTHM STRIP D/T PT VERY TREMULOUS; APPEARS TO BE NSR WITH HR 70/80'S. HOWEVER, OLD EKG STATES PT HAS A FIRST DEGREE AV BLOCK; UNABLE TO DETERMINE AT THIS TIME. LUNG SOUNDS ARE CLEAR. ROOM AIR WITH OXYGEN SATURATIONS 96% PT REFUSED LACTULOSE DOSE STATING HE TOOK "ENOUGH THIS MORNING" AND DIDN'T WANT TO BE "MESSING HIS PANTS ALL NIGHT". ENCOURAGED LACTULOSE DOSE WITH AMMONIA LEVEL ELEVATED, BUT PT STILL REFUSED. ASCITES TO ABDOMEN IS SEVERE. PT STATES HE WAS DUE FOR HIS PARACENT[place] AT THE [place]. WILL PASS ON TO DAY RN TO NOTIFIY HOSPITALIST. TEMP LEDBETTER IS PATENT AND DRAINING CLEAR, YELLOW URINE TO GRAVITY. SKIN IS DRY AND INTACT WITH SUNBURN NOTED TO BILATERAL ARMS, WELL BRUISING AND ONE SMALL, OLD ABRASION TO LEFT FOREARM. PT REQUIRES MAX ASSISTANCE WITH TURNING HE STATES HE HAS ARTHRITIS TO BOTH SHOULDERS AND IS VERY WEAK IN BOTH LEGS. CALL LIGHT IS WITHIN REACH. PT IS ABLE TO MAKE HIS NEEDS KNOWN AT THIS TIME.
[2019-01-04] MEDS ORDERED: NOVOLOG FL100 UNIT/1 SC (01:51)
[2019-01-04] MEDS ORDERED: INSULANPEN (02:02)
[2019-01-04] MEDS ORDERED: FURO40 PO (02:17)
[2019-01-04 03:43] LABS: BASOPHILS ABSOLUTE AUTO 0.05 K/mm3 (0.00-0.23); BASOPHILS PERCENT AUTO 1 % (0-2); EOSINOPHILS ABSOLUTE AUTO 0.09 K/mm3 (0.00-0.68); EOSINOPHILS PERCENT AUTO 1 % (0-6); Hematocrit 25.2 % (37.0-53.0); Hemoglobin 8.3 g/dL (13.5-17.5); IMMATURE GRAN ABSOLUTE AUTO 0.01 K/mm3 (0.00-0.10); IMMATURE GRAN PERCENT AUTO 0 % (0-1); LYMPHOCYTES ABSOLUTE AUTO 0.75 K/mm3 (0.84-5.20); LYMPHOCYTES PERCENT AUTO 11 % (21-46); MONOCYTES ABSOLUTE AUTO 0.82 K/mm3 (0.16-1.47); MONOCYTES PERCENT AUTO 12 % (4-13); Mean Corpuscular HGB 31.4 pg (26.0-34.0); Mean Corpuscular HGB Conc 32.9 g/dL (31.5-36.5); Mean Corpuscular Volume 96 fL (80-100); NEUTROPHILS ABSOLUTE AUTO 5.03 K/mm3 (1.96-9.15); NEUTROPHILS PERCENT AUTO 75 % (41-73); Platelet Count 66 K/mm3 (150-400); RDW Standard Deviation 44.7 fL (35.1-46.3); Red Blood Cell Count 2.64 M/mm3 (4.30-5.90); White Blood Cell Count 6.75 K/mm3 (4.00-11.30)
[2019-01-04 04:02] LABS: Creatine Kinase MB 1.5 ng/mL (0.0-3.6); Creatine Kinase MB Index 3.9 (0.0-4.0); Magnesium, Blood 1.9 mg/dL (1.6-2.4); Phosphorus, Blood 5.3 mg/dL (2.5-4.9); Troponin I 0.016 ng/mL (0.000-0.040)
--- NOTE | 2019-01-04 05:27 | NUR ---
END OF SHIFT SUMMARY NO SIGNIFICANT CHANGES NOTED THIS SHIFT. PT HAS REMAINED AFEBRILE. ALERT AND ORIENTED AND PLEASANT WITH CARE. PT HAS SLEPT MOST OF NIGHT, BUT WAS ABLE TO CALL FOR ASSISTANCE WHEN NEEDED. LUNG SOUNDS REMAIN CLEAR. PT REMAINS IN NSR WITH 1ST DEGREE AV BLOCK; HR 70-80'S. ABDOMEN REMAINS SEVERELY DISTENDED, FIRM UPON PALPATION AND DIFFUSE TENDERNESS. TEMP LEDBETTER REMAINS PATENT AND DRAINING TO GRAVITY; CLEAR, YELLOW URINE NOTED. PT REPOSITIONED FOR COMFORT HE REQUESTED FROM SIDE TO SIDE; PT COULDN'T TOLERATE BEING ON BACK D/T SEVERELY DISTENDED ABDOMEN. PT C/O 01/31 GENERALIZED, ACHING PAIN; MEDICATED WITH PRN TYLENOL 650MG; APPEARED EFFECTIVE WITH REPOSITIONING MEASURES. CALL LIGHT WITHIN REACH. WILL CONTINUE TO MONITOR UNTIL REPORT IS HANDED OFF TO DAY SHIFT RN.
[2019-01-04 06:31] LABS: Albumin, Blood 2.3 g/dL (3.4-5.0); Albumin/Globulin Ratio 0.6 (0.8-1.8); Bilirubin, Total 0.9 mg/dL (0.1-1.0); Bun/Creatinine Ratio 22.4 (12.0-20.0); Calcium, Blood 7.6 mg/dL (8.5-10.1); Creatinine, Blood 2.28 mg/dL (0.60-1.20); Globulin, Blood 4.1 g/dL (2.2-4.0); Total Protein, Blood 6.4 g/dL (6.4-8.2)
--- NOTE | 2019-01-04 09:00 | NUR ---
PT REFUSING TO DRINK LACTULOSE BECAUSE I WON'T GIVE HIM CRANBERRY JUICE TO REMOVE THE FILM HE GETS ON THE ROOF OF HIS MOUTH. INSTRUCTED THAT HE IS ON AN ADA DIET TO CONTROL HIS DIABETES AND HE NEEDS THE LACTULOSE TO REDUCE HIS AMMONIA LEVEL. HE SAID HE DOESN'T CARE. I OFFERRED WATER, MOUTH SWABS, AND A TOOTHBRUSH FOR MOUTH CARE. PT REFUSED AND SAID HE WILL NOT TAKE LACTULOSE WITHOUT CRANBERRY JUICE.
--- NOTE | 2019-01-04 10:30 | NUR ---
TALKED WITH RENTAL SALES REPRESENTATIVE RE: PT'S REQUEST FOR CRANBERRY JUICE. RENTAL SALES REPRESENTATIVE ENTERED DIETARY ORDER FOR PT TO HAVE CRANBERRY JUICE ON HIS MEAL TRAYS AND INSTRUCTED PT TO HOLD ONTO THE CRANBERRY JUICE TO DRINK AFTER TAKING HIS LACTULOSE. PT VERBALIZED GOOD UNDERSTANDING.
--- NOTE | 2019-01-04 12:00 | NUR ---
TRANSFERRED PT TO THE MEDICAL UNIT ROOM 359. I AM REMAINING HIS NURSE IN THE MEDICAL UNIT. PT SITTING IN HIS PERSONAL WHEELCHAIR AND WAS ABLE TO DRIVE HIMSELF TO ROOM 359 WITH DUKE/COMMISSARY HELPER AND MYSELF AT HIS SIDE. BLOOD SUGAR CHECKED = 165, 3 UNITS HUMALOG GIVEN, MEAL TRAY GIVEN.
--- NOTE | 2019-01-04 17:53 | NUR ---
PT REFUSING TO REPOSITION IN [place] TO EAT HIS DINNER. EDUCATED RE: RISK FOR CHOKING. PT STATES "I DON'T CHOKE AND i'M NOT SITTING UP HIGHER."
--- NOTE | 2019-01-04 18:36 | NUR ---
NURSING SUMMARY ALERT, ORIENTED X 4, FORGETFUL AT TIMES. VSS. LUNGS CLEAR, DIMINISHED AT THE BASES, ROOM AIR SATS 99%. ABDOMEN DISTENDED, TIGHT, NORMOACTIVE BOWEL SOUNDS, [facility]ED[facility]. PT STATED IT WILL BE RESCHEDULED WHEN [facility]. DENIES ABDOMINAL PAIN AND DISCOMFORT. HAS BEEN VOIDING PER BATHROOM, URGENCY, INCONTINENT OF URINE X 1, GAVE URINAL, LEDBETTER DISCONTINUED THIS AM. LEFT FOREARM IV SITE INFUSING NS AT 100 ML/HR. LACTULOSE, ELEVATED AMMONIA LEVEL. TEMP WNL. NOT WEARING DENTURES, ADA DIET, BLOOD SUGARS AC & HS.
--- NOTE | 2019-01-05 04:16 | NUR ---
OFFSET ASSISTANT PRESS OPERATOR SUMMARY NO ACUTE CHANGES THIS SHIFT. PT AAOX4 AND INDEPENDENT WITH WHEELCHAIR. PT AFEBRILE THIS SHIFT. PT REQUESTED FOR HOME DOSE OF NORTRIPTYLINE TO BE STARTED AGAIN. RECIEVED ORDER FROM DR DEAL TO RESTART THE ORDER. PT REFUSED BEDTIME DOSE OF LACTULOSE, PT DID HAVE A BM TONIGHT. VSS, WILL CONTINUE TO MONITOR.
[2019-01-05 04:53] LABS: BASOPHILS ABSOLUTE AUTO 0.06 K/mm3 (0.00-0.23); BASOPHILS PERCENT AUTO 1 % (0-2); EOSINOPHILS ABSOLUTE AUTO 0.16 K/mm3 (0.00-0.68); EOSINOPHILS PERCENT AUTO 2 % (0-6); Hematocrit 26.3 % (37.0-53.0); Hemoglobin 8.4 g/dL (13.5-17.5); IMMATURE GRAN ABSOLUTE AUTO 0.03 K/mm3 (0.00-0.10); IMMATURE GRAN PERCENT AUTO 0 % (0-1); LYMPHOCYTES ABSOLUTE AUTO 0.63 K/mm3 (0.84-5.20); LYMPHOCYTES PERCENT AUTO 9 % (21-46); MONOCYTES ABSOLUTE AUTO 0.89 K/mm3 (0.16-1.47); MONOCYTES PERCENT AUTO 13 % (4-13); Mean Corpuscular HGB 30.5 pg (26.0-34.0); Mean Corpuscular HGB Conc 31.9 g/dL (31.5-36.5); Mean Corpuscular Volume 96 fL (80-100); NEUTROPHILS ABSOLUTE AUTO 5.17 K/mm3 (1.96-9.15); NEUTROPHILS PERCENT AUTO 75 % (41-73); Platelet Count 66 K/mm3 (150-400); RDW Coefficient Variation 12.9 % (11.7-14.2); RDW Standard Deviation 44.5 fL (35.1-46.3); Red Blood Cell Count 2.75 M/mm3 (4.30-5.90); White Blood Cell Count 6.94 K/mm3 (4.00-11.30)
[2019-01-05 05:14] LABS: Albumin, Blood 2.3 g/dL (3.4-5.0); Albumin/Globulin Ratio 0.6 (0.8-1.8); Bilirubin, Total 0.7 mg/dL (0.1-1.0); Bun/Creatinine Ratio 22.1 (12.0-20.0); Calcium, Blood 7.6 mg/dL (8.5-10.1); Creatinine, Blood 1.99 mg/dL (0.60-1.20); Globulin, Blood 3.8 g/dL (2.2-4.0); Potassium, Blood 4.9 mmol/L (3.5-5.5); Total Protein, Blood 6.1 g/dL (6.4-8.2)
--- NOTE | 2019-01-05 09:49 | NUR ---
ATTEMPTED TO CALL REPORT FOR RN TO RN PRIOR TO PATIENT DISCHARGE BACK TO THE [facility] THREE TIMES. WILL TRY ONCE MORE. PATIENT IS SET TO RETURN TO THE [facility] AT 10:30
--- NOTE | 2019-01-05 10:35 | NUR ---
discharge summary report given to mariano rn at the mt and patient given discharge instructions. he signed discharge papers and was transported by the mt.
== END 2019-01-05 10:23 | disposition short-term general hospital (02) | DRG 923 ==
LOC: ER 16:04 → ICUW 16:05 → ICUE 20:12 → MEDS 20:43 → ICUE 01-04 09:06 → MEDS 01-04 11:57
PROVIDERS: Emergency Medicine; Internal Medicine; ADMIT Family Medicine
DX: T67.0XXA Heatstroke and sunstroke, initial encounter (principal); N17.9 Acute kidney failure, unspecified; E87.1 Hypo-osmolality and hyponatremia; Z68.41 Body mass index [BMI] 40.0-44.9, adult; G93.40 Encephalopathy, unspecified; Y92.512 Supermarket, store or market as the place of occurrence of the external cause; K74.60 Unspecified cirrhosis of liver; E66.01 Morbid (severe) obesity due to excess calories; E11.9 Type 2 diabetes mellitus without complications; D63.8 Anemia in other chronic diseases classified elsewhere; E86.0 Dehydration; R55 Syncope and collapse; E78.5 Hyperlipidemia, unspecified; I25.10 Atherosclerotic heart disease of native coronary artery without angina pectoris; Z66 Do not resuscitate; Z99.3 Dependence on wheelchair; Z88.8 Allergy status to other drugs, medicaments and biological substances; Z91.040 Latex allergy status; Z87.891 Personal history of nicotine dependence; Z79.4 Long term (current) use of insulin; Z79.899 Other long term (current) drug therapy
CPT/HCPCS: 36415; 36416; 71045; 80053; 81001; 82140; 82550; 82553; 82947; 83036; 83605; 83735; 84100; 84484; 85025; 85610; 85730; 87086; 87106; 93005; 93010; 96360; 96361; 96372; 99285-25; A9270; G0378; J1650; J1815; J7030

== ENCOUNTER 2019-02-18 19:49 | Observation (INO) | payer MEDICARE ==
[~2019-02-18] VITALS: Ht 182.9 cm; Wt 116.1 kg
[~2019-02-18 19:49] MED LIST changes: +BUME1 PO; +BUME2 PO; +CIPR500 PO; +DOC250 PO; +FOLI1 PO; +INSULANPEN; +NOVOLOG FL100 UNIT/1 SC; +Novolog100 UNIT/2 SC; +PREG100 PO; +VITAMIN D250000 UNIT PO
[2019-02-18] MEDS ORDERED: DOC250 PO (20:31)
[2019-02-18 20:40] LABS: BASOPHILS ABSOLUTE AUTO 0.06 K/mm3 (0.00-0.23); BASOPHILS PERCENT AUTO 1 % (0-2); EOSINOPHILS PERCENT AUTO 5 % (0-6); Hematocrit 25.4 % (37.0-53.0); Hemoglobin 8.4 g/dL (13.5-17.5); IMMATURE GRAN ABSOLUTE AUTO 0.03 K/mm3 (0.00-0.10); IMMATURE GRAN PERCENT AUTO 0 % (0-1); LYMPHOCYTES ABSOLUTE AUTO 0.52 K/mm3 (0.84-5.20); LYMPHOCYTES PERCENT AUTO 7 % (21-46); MONOCYTES ABSOLUTE AUTO 0.72 K/mm3 (0.16-1.47); MONOCYTES PERCENT AUTO 9 % (4-13); Mean Corpuscular HGB 31.1 pg (26.0-34.0); Mean Corpuscular HGB Conc 33.1 g/dL (31.5-36.5); Mean Corpuscular Volume 94 fL (80-100); Mean Platelet Volume 10.9 fL (9.1-12.4); NEUTROPHILS ABSOLUTE AUTO 6.22 K/mm3 (1.96-9.15); NEUTROPHILS PERCENT AUTO 78 % (41-73); Platelet Count 75 K/mm3 (150-400); RDW Coefficient Variation 15.4 % (11.7-14.2); RDW Standard Deviation 52.4 fL (35.1-46.3); White Blood Cell Count 7.95 K/mm3 (4.00-11.30)
[2019-02-18] MEDS ORDERED: POTCHL20ER PO (20:40)
[2019-02-18] MEDS ORDERED: POTCIT10 PO (20:40)
[2019-02-18 20:56] LABS: Albumin, Blood 2.7 g/dL (3.4-5.0); Albumin/Globulin Ratio 0.8 (0.8-1.8); Bilirubin, Total 0.6 mg/dL (0.1-1.0); Bun/Creatinine Ratio 16.5 (12.0-20.0); Calcium, Blood 7.4 mg/dL (8.5-10.1); Creatinine, Blood 2.3 mg/dL (0.60-1.20); Globulin, Blood 3.5 g/dL (2.2-4.0); Potassium, Blood 3.6 mmol/L (3.5-5.5); Total Protein, Blood 6.2 g/dL (6.4-8.2)
[2019-02-18 22:54] LABS: Source, Urine Clean Catch
[2019-02-18 22:59] LABS: Bilirubin, Urine Neg (Neg); Blood, Urine 1+ (Neg); Glucose Qualitative, Urine Neg (Neg); Ketones, Urine Neg (Neg); Leukocyte Esterase, Urine 2+ (Neg); Nitrite, Urine Neg (Neg); Protein, Urine 2+ (Neg); Urobilinogen, Urine NORM (Normal)
[2019-02-18 23:07] LABS: Appearance, Urine Clear (Clear); Color, Urine Yellow (P-Yellow)
[2019-02-18 23:09] LABS: Bacteria Rare /hpf; Red Blood Cells, Urine Rare /hpf (0-2); Squamous Epithelial Cells Rare /hpf (Few); White Blood Cells, Urine 50-100 /hpf (0-5); Yeast/Fungi Urine Many /hpf
[2019-02-19 05:32] LABS: BASOPHILS ABSOLUTE AUTO 0.07 K/mm3 (0.00-0.23); BASOPHILS PERCENT AUTO 1 % (0-2); EOSINOPHILS ABSOLUTE AUTO 0.47 K/mm3 (0.00-0.68); EOSINOPHILS PERCENT AUTO 6 % (0-6); Hematocrit 25.3 % (37.0-53.0); Hemoglobin 8.2 g/dL (13.5-17.5); IMMATURE GRAN ABSOLUTE AUTO 0.02 K/mm3 (0.00-0.10); IMMATURE GRAN PERCENT AUTO 0 % (0-1); LYMPHOCYTES ABSOLUTE AUTO 0.78 K/mm3 (0.84-5.20); LYMPHOCYTES PERCENT AUTO 10 % (21-46); MONOCYTES ABSOLUTE AUTO 0.71 K/mm3 (0.16-1.47); MONOCYTES PERCENT AUTO 9 % (4-13); Mean Corpuscular HGB 30.9 pg (26.0-34.0); Mean Corpuscular HGB Conc 32.4 g/dL (31.5-36.5); Mean Corpuscular Volume 96 fL (80-100); Mean Platelet Volume 11.5 fL (9.1-12.4); NEUTROPHILS ABSOLUTE AUTO 5.76 K/mm3 (1.96-9.15); NEUTROPHILS PERCENT AUTO 74 % (41-73); Platelet Count 72 K/mm3 (150-400); RDW Coefficient Variation 15.3 % (11.7-14.2); RDW Standard Deviation 52.8 fL (35.1-46.3); Red Blood Cell Count 2.65 M/mm3 (4.30-5.90); White Blood Cell Count 7.81 K/mm3 (4.00-11.30)
[2019-02-19 05:44] LABS: International Normalized Ratio 1.17; Prothrombin Time Results 12.2 Sec (9.7-11.5)
[2019-02-19 05:50] LABS: Bun/Creatinine Ratio 16.1 (12.0-20.0); Calcium, Blood 7.2 mg/dL (8.5-10.1); Creatinine, Blood 2.23 mg/dL (0.60-1.20); Magnesium, Blood 2.2 mg/dL (1.6-2.4); Potassium, Blood 3.4 mmol/L (3.5-5.5)
[2019-02-22 05:54] LABS: Bun/Creatinine Ratio 16.1 (12.0-20.0); Calcium, Blood 7.9 mg/dL (8.5-10.1); Creatinine, Blood 2.24 mg/dL (0.60-1.20); Potassium, Blood 4.9 mmol/L (3.5-5.5)
[2019-02-23] MEDS ORDERED: Nortriptyline H10 MG PO (19:18)
[2019-02-23] MEDS ORDERED: RIFA550T2 PO (19:19)
[2019-02-23] MEDS ORDERED: SENN187 PO (19:19)
[2019-02-23] MEDS ORDERED: TAMS.4ER PO (19:19)
[2019-02-23] MEDS ORDERED: GAVILAX17 GM PO (19:20)
[2019-02-23] MEDS ORDERED: NOVOLOG FL100 UNIT/1 SC (19:20)
[2019-02-23] MEDS ORDERED: INSULANPEN SC (19:20)
[2019-02-23] MEDS ORDERED: HYDHCL25 PO (19:20)
[2019-02-23] MEDS ORDERED: Lasix80 MG PO (19:21)
[2019-02-23] MEDS ORDERED: FERSU300 PO (19:21)
[2019-02-23] MEDS ORDERED: Loratadine10 MG PO (19:22)
[2019-02-23] MEDS ORDERED: PANT40 PO (19:22)
[2019-02-23] MEDS ORDERED: METO25 PO (19:22)
[2019-02-23] MEDS ORDERED: PREG75 PO (19:22)
[2019-02-23] MEDS ORDERED: DOC250 PO (19:23)
[2019-02-23] MEDS ORDERED: SPIR50 PO (19:23)
[2019-02-23] MEDS ORDERED: LACT10SY PO (19:24)
== END 2019-02-23 16:15 | disposition home health service (06) ==
LOC: ER 19:49 → MEDS 22:38 → ENPENDDIS 02-23 11:30 → MEDS 02-23 16:15
PROVIDERS: Hospitalist; Nurse Practitioner Acute Care; Physician Assistant; ADMIT Internal Medicine
DX: R53.1 Weakness (principal); R26.9 Unspecified abnormalities of gait and mobility; M17.0 Bilateral primary osteoarthritis of knee; K74.60 Unspecified cirrhosis of liver; R18.8 Other ascites; E87.2 Acidosis; I12.9 Hypertensive chronic kidney disease with stage 1 through stage 4 chronic kidney disease, or unspecified chronic kidney disease; E11.22 Type 2 diabetes mellitus with diabetic chronic kidney disease; N18.4 Chronic kidney disease, stage 4 (severe); D63.1 Anemia in chronic kidney disease; I25.10 Atherosclerotic heart disease of native coronary artery without angina pectoris; G89.29 Other chronic pain; M54.5 Low back pain; E78.5 Hyperlipidemia, unspecified; E66.01 Morbid (severe) obesity due to excess calories; Z79.4 Long term (current) use of insulin; Z79.899 Other long term (current) drug therapy; Z88.5 Allergy status to narcotic agent; Z88.8 Allergy status to other drugs, medicaments and biological substances; Z91.040 Latex allergy status; Z91.048 Other nonmedicinal substance allergy status; Z87.891 Personal history of nicotine dependence; W19.XXXA Unspecified fall, initial encounter
CPT/HCPCS: 36415; 49083; 71045; 80048; 80053; 81001; 82140; 82947; 83735; 84443; 85025; 85610; 87086; 87106; 93005; 93010; 96372; 97110; 97162; 97166; 97530; 97535; 99285-25; G0378; J1644; P9041; P9046

== ENCOUNTER 2019-02-23 17:59 | Observation (INO) | payer MEDICARE ==
[~2019-02-23] VITALS: Ht 180.3 cm; Wt 118.6 kg
[2019-02-23] MEDS ORDERED: Nortriptyline H10 MG PO (19:18)
[2019-02-23] MEDS ORDERED: RIFA550T2 PO (19:19)
[2019-02-23] MEDS ORDERED: SENN187 PO (19:19)
[2019-02-23] MEDS ORDERED: TAMS.4ER PO (19:19)
[2019-02-23] MEDS ORDERED: INSULANPEN SC (19:20)
[2019-02-23] MEDS ORDERED: HYDHCL25 PO (19:20)
[2019-02-23] MEDS ORDERED: GAVILAX17 GM PO (19:20)
[2019-02-23] MEDS ORDERED: NOVOLOG FL100 UNIT/1 SC (19:20)
[2019-02-23] MEDS ORDERED: FERSU300 PO (19:21)
[2019-02-23] MEDS ORDERED: Lasix80 MG PO (19:21)
[2019-02-23] MEDS ORDERED: METO25 PO (19:22)
[2019-02-23] MEDS ORDERED: Loratadine10 MG PO (19:22)
[2019-02-23] MEDS ORDERED: PANT40 PO (19:22)
[2019-02-23] MEDS ORDERED: PREG75 PO (19:22)
[2019-02-23] MEDS ORDERED: DOC250 PO (19:23)
[2019-02-23] MEDS ORDERED: SPIR50 PO (19:23)
[2019-02-23] MEDS ORDERED: LACT10SY PO (19:24)
--- NOTE | 2019-02-24 05:40 | NUR ---
SHIFT SUMMARY: PATIENT ARRIVED TO THE FLOOR VIA GURNEY, HE WAS TRANSFERRED USING A TRANSFER SHEET. HE IS A RETURN ADMIT, HE WAS DISCHARGED TODAY AND ONCE HOME COULD NOT MAKE IT INTO THE TRAILER SO THEY BROUGHT HIM BACK TO THE HOSPITAL. HE IS VERY WEAK AND UNABLE TO MOVE FAR. LUNG SOUNDS WERE CLEAR THROUGHOUT, HR REGULAR, DENIES ANY CHEST PAIN OR SOB. BT X4 BM TODAY. SKIN HAS SOME SCABS ON THE BLE AND RIGHT FORARM, AND A ULCER ON THE RIGHT ANKLE. ENCOURAGE REPOSITION OFTEN. ONCE SETTLED HE WAS GIVEN HIS MEDS PER EMAR. THEN HE SLEPT THE REST OF THE SHIFT. NO ACUTE CHANGES OR CONCERNS TO NOTE. WILL REPORT TO DAY SHIFT RN.
--- NOTE | 2019-02-24 09:33 | NUR ---
PT BP OF 98/43 HR 57 THIS AM, METOPROLOL, LASIX, AND SPIRONOLACTONE HELD. PER DR LYNN PT HAS CIRRHOSIS AND HIS BP RUNS LOW AT TIMES. PER DR LYNN GO AHEAD AND GIVE METOPROLOL AND RECHECK BP AFTER AN HOUR OR SO, IF BP OK GIVE LASIX AND SPIRONOLACTONE.
--- NOTE | 2019-02-24 16:30 | NUR ---
SHIFT SUMMARY- PT A/O X3, PT FLAT AND WITHDRAWN, IRRITABLE AT TIMES. PT WITH GENERALIZED WEAKNESS T/O. PT SLOW TO RESPOND AND SLEPT T/O THE DAY BUT AWAKENS TO VERBAL STIMULI. PT NOTED TO HAVE DIFFICULTY FEEDING SELF FREQUENTLY SPILLING ON SELF. LS DIMINISHED, ON RA. HRR. PT WITH SCABS T/O, ULCER TO RIGHT ANKLE, PHOTOS IN CHART. PT REPORTS CHRONIC BACK PAIN. NO OTHER ACUTE CHANGES THIS SHIFT. PT AWAITING PLACEMENT.
--- NOTE | 2019-02-25 05:30 | NUR ---
SHIFT SUMMARY PT SLEPT FAIR. TRIED GETTING UP OUT OF BED X1 WITHOUT HELP. REMINDED PT HE NEEDED TO RING FOR ASSISTANCE, BED ALARM ON. PT USES URINAL WITH ASSISTANCE AND IS ALSO INCONTINENT OF BOWEL AND BLADDER. PT HAD LARGE MUSHY STOOL. PT KEEPS PICKING AT SCABS ON HIS ARMS MAKING THEM BLEED. WILL CONTINUE TO MONITOR.
--- NOTE | 2019-02-25 17:24 | NUR ---
SHIFT SUMMARY- PT A/O X3, PT IRRITBALE AT TIMES, FLAT AND WITHDRAWN. PT VERY DROWSY T/O THE DAY, PT WILL AWAKE TO VERBAL STIMULI BUT FALLS ASLEEP DURING CONVERSATION, AFTERNOON LYRICA HELD. PT VERY WEAK, NEEDS FEEDING ASSISTANCE. LG LIQUID STOOL THIS EVENING. PT AWAITING PLACEMENT. NO OTHER ACUTE CHANGES THIS SHIFT.
--- NOTE | 2019-02-26 02:56 | NUR ---
SHIFT SUMMARY- PT. DROWSY AT BEGINNING OF SHIFT, DOES RESPOND TO VERBAL STIMULI. NO APPARENT DISTRESS NOTED. HELD LYRICA DUE TO HIS DROWSINESS. PT. MORE AWAKE T/O THE NIGHT WITH INTERMITTENT CONFUSION. INCONTINENT OF URINE. DENIES NEEDS AT THIS TIME. AWAITING FOR PLACEMENT TO SNF. CALL LIGHT WITHIN REACH AND SIDE RAILS UP X2. WILL CONT TO MONITOR.
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
--- NOTE | 2019-02-26 19:22 | NUR ---
SHIFT SUMMARY. PT DROWSY AND LETHARGIC, SLEEPING MOST OF THE SHIFT. PT WITH INTERMITTENT CONFUSION, REORIENTS EASILY. PT WITH CHRONIC BACK PAIN, PT REPOSITIONED, MEDICATED PER EMAR. ABD DISTENDED, NONTENDER. FAIR APPETITE, REQUIRES ASSISTANCE WITH FEEDING. NO N/V, SOB. PT PARTICIPATED WITH PT/OT, REQUIRES TWO MAX ASSIST WITH GB FOR PIVOT TRANSFER TO CHAIR. PALLIATIVE CARE AND CASE MANAGEMENT IN TO SEE PT TODAY.
--- NOTE | 2019-02-27 04:08 | NUR ---
SHIFT SUMMARY- NO ACUTE CHANGES OVERNIGHT. PT. SLEPT T/O MOST OF THE NIGHT. ALERT BUT DROWSY. REPOSITIONED PRN AND SCHEDULED MEDS GIVEN PER EMAR, PT. TOLERATED THEM WELL. ABD REMAINS DISTENDED. DENIED ANY NEEDS T/O THE NIGHT. PT. AWAITING PLACEMENT. CALL LIGHT WITHIN REACH AND SIDE RAILS UP X2.
--- NOTE | 2019-02-27 18:48 | NUR ---
SHIFT SUMMARY. PT MORE ALERT AND CONVERSIVE TODAY. MORE CONTINENT WELL. ASSISTED PHYSICAL THERAPY WITH TRANSFER TO CHAIR THIS AM, PT WAS A TWO PERSON MAX ASSIST WITH GB. WHEN RETURNING PT TO CHAIR WITH LAW TUTOR, PT WAS A TOTAL LIFT. THIS RN WOULD ADVISE TO ONLY USE LIFT TO TRANSFER PT FOR SAFETY. PT AWAITING PLACEMENT.
--- NOTE | 2019-02-28 04:48 | NUR ---
SHIFT SUMMARY- PT. SLEPT ON/OFF T/O THE SHIFT. OBSERVED PT. ATTEMPTING TO GET OUT OF BED, ASSISTED PT. BACK INTO BED AND REORIENTED. BED ALARM TURNED ON. PT. IS INCONTINENT ATTENDS IN PLACE. SCHEDULED MEDS GIVEN PER EMAR. TOLERATED WELL. NO BM THIS SHIFT. AWAITING PLACEMENT TO LTC. CALL LIGHT WITHIN REACH AND SIDE RAILS UP X2. WILL CONT TO MONITOR.
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
--- NOTE | 2019-02-28 16:24 | NUR ---
SUMMARY PT IS LETHARGIC, WEAK/FATIGUED. HAS SLEPT MOST OF DAY, AROUSES EASILY. HAS DECLINED OOB. DR LYNN IN TO SEE HIM THIS AM, STATE [facility] CONTINUING TO ATTEMPT TO FIND SNF PLACEMENT. PT STATE NECK, JOINT PAIN. ORDER TYLENOL FOR RELIEF/CONTROL. ABD IS SOMEWHAT DISTENDED HOWEVER SOFT, HX LIVER CIRRHOSIS & ASCITES. HE IS COMPLIANT w SCHEDULED LACTULOSE, HOWEVER NO BM SO FAR TODAY. VSS.
--- NOTE | 2019-03-01 06:19 | NUR ---
SHIFT SUMMARY NO ACUTE CHANGES. PATEINT SLEPT OFF AND ON THROUGHOUT THE PIPELINER. PATIENT ORIENTED TO SELF. PATIENT HAD 2 LARGE GREEN LOOSE BOWEL MOVEMENTS. INCONTINENT OF BOTH BOWEL AND BLADDER. Q2 TURNS NEEDED. MULTIPLE AREAS OF WOUNDS ON BUE AND SCABBING ON BLE.
--- NOTE | 2019-03-01 09:26 | NUR ---
PHONE CALL PT HAD A PHONE CALL AND WAS HAVING DIFFICULTY WITH HANDLING THE PHONE, HE ASKED FOR MY ASSISTANCE, IT WAS A SCREENER FROM [employer] AND PEOPLE WITH DISABILITIES AND THEY WANTED TO KNOW IF THE PT WAS WANTING TO APPLY FOR SERVICES WITH THEM, HE INDICATED YES, I LET THE SCREENER KNOW HIS INCREASED CARE NEEDS, SUCH INABILITY TO FEET OR TOILET HIMSELF, AND HIS INABILITY TO AMBULATE AT THIS TIME, [employer] SCREENER INDICATED TO ME THAT HE WOULD BE ASSIGNED TO A WORKER, I CONVEYED THIS INFORMATION TO THE BEFORE SCHOOL BABYSITTER
--- NOTE | 2019-03-01 17:50 | NUR ---
SUMMARY PT RESTING QUIETLY IN BED, PT HAS BEEN SLEEPY OFF AND ON FOR MOST OF THE DAY, PT WORKED WITH PT/OT, WAS UNABLE TO GET UP TO THE CHAIR, PT WITH A POOR APPETITE, PT'S SON CAME IN TO VISIT, HE SPOKE WITH THE VP SITE AND THE MD ABOUT POSSIBLE HOSPICE AT DISCHARGE, VSS, NO ACUTE CHANGES, WILL CONT TO MONITOR
--- NOTE | 2019-03-02 04:13 | NUR ---
SHIFT SUMMARY PT HAS SLEPT MOST OF THE SHIFT. PT MUCH MORE LETHARGIC THIS SHIFT. WHEN AWAKE PT IS FLAT AND WITHDRAWN, HIS EYES ARE CLOSED MOST OF THE TIME. PT REFUSESED HIS LACTULOSE DESPITE EXPLANING INDICATION. PT A/O WITH SOME INTERMITTENT CONFUSION. CONTINENT/INCONTINENT AND REQUESTS TO USE THE URINAL AT TIMES. VITALS STABLE. NO ACUTE CHANGES OVERNIGHT. WILL CONTINUE TO MONITOR AND REPORT TO ONCOMING RN.
--- NOTE | 2019-03-02 18:13 | NUR ---
SUMMARY PT RESTING IN BED, PT HAS HAD INTERMITTENT CONFUSION T/O THE DAY, FALLS ASLEEP MID SENTENCE AT TIMES, REFUSES MEDS OCC., PALLIATIVE CARE AND DISCHARGE PLANNING WORKING ON A DISCHARGE PLAN, VSS, NO ACUTE CHANGES, WILL CONT TO MONITOR
--- NOTE | 2019-03-03 04:54 | NUR ---
SHIFT SUMMARY PT HAD NO ISSUES. PT CHANGED AND REPOSITIONED NEEDED. PT SLEPT OFF AND ON. PT CURRENTLY SLEEPING IN NO DISTRESS. CALL LIGHT IN REACH.
--- NOTE | 2019-03-03 16:30 | NUR ---
REPORTED PT'S BP TO DR. LYNN. NEW ORDERS RECEIVED TO GIVEN NS 250ML BOLUS IF REPEAT BP IS LOW.
--- NOTE | 2019-03-03 17:11 | NUR ---
will attempt new plan of care with him tomorrow.
--- NOTE | 2019-03-03 18:07 | NUR ---
SHIFT SUMMARY COOPERATIVE TODAY. INCONTINENT. EATING AND DRINKING WELL. C/O PAIN TO LOWER BACK. BLOOD PRESSURE DROP TO 90'S THIS AFTERNOON BUT HAS NOW IMPROVED WITHOUT INTERVENTION. PT UNABLE TO RETURN TO PREVIOUS LIVING ARRANGEMENT IN MOTOR HOME WITHOUT ELECRICITY OR WATER. CBG'S AC AND HS. NEEDS PLACEMENT [facility]ING [facility].
--- NOTE | 2019-03-03 22:19 | NUR ---
*DIET* PT WOULD BENEFIT FROM CHANGING TO A PUREED DIET. PT HAS NO TEETH OR DENTURES. PT HAS DIFFICULTY CHEWING AND REQUIRES ASSISTANCE WITH FEEDING.
--- NOTE | 2019-03-04 05:00 | NUR ---
SHIFT SUMMARY PT HAS ATE VERY LITTLE THIS SHIFT. PT REFUSED LACTALOSE THIS SHIFT. PT SLEPT MOST OF SHIFT. PT WAS MORE CONFUSED THIS AM AND AGITATED. PT IS REFUSING MORNING MEDS. PT FELL BACK TO SLEEP EASILY AFTER CHANGING. CALL LIGHT IN REACH AND BED ALARM ON.
--- NOTE | 2019-03-04 16:16 | NUR ---
pt resting comfortable today still having nighmares.
--- NOTE | 2019-03-04 16:27 | NUR ---
suggest pharmacy consult to review [facility]. suggest stopping aldactone due to age and/or revew geriatric dosing of meds. suggest starting comfort care orders if son agrees.
--- NOTE | 2019-03-04 17:38 | NUR ---
SHIFT SUMMARY ORIENTED TO PLACE AND PERSON CONFUSED AT TIMES; BEDREST BUT ABLE TO SIT ON SIDE OF BED INDEPENDENTLY FOR A SHORT TIME THIS AFTERNOON. C/O LOWER BACK PAIN AND MEDICATED PER EMAR. DECREASED APPETITE. PALLIATIVE CARE TO CONTACT SON ABOUT PT CONDITION AND PLAN.
--- NOTE | 2019-03-05 04:16 | NUR ---
SHIFT SUMMARY PT HAS SLEPT T/O SHIFT. PT WAS PLEASENT THIS SHIFT. PT STILL WEAK AND SOMNOLENT. PT REFUSED LACTOLOSE THIS SHIFT. PT HAD NO ISSUES NOTED. PT CURRENTLY SLEEPING IN NO DISTRESS. CALL LIGHT IN REACH.
--- NOTE | 2019-03-05 17:49 | NUR ---
SHIFT SUMMARY PT AXO TO SELF, FOLLOWING DIRECTIONS AND YEAR THOUGH VERY SLOW TO RESPOND. PT INCONTINENT OF URINE AND STOOL. ONLY HAD ONE EPISODE OF URINE OUTPUT THIS SHIFT AT THE BEGINNING OF SHIFT. NO BM THIS SHIFT. PT TOLERATED LACTULOSE WELL. AT 1724 PT HAD [address] DOTSON NOTIFIED, NEW ORDERS IN PLACE (AMMONIA LEVEL AND ZOFRAN ODT). PT SLEEPING THROUGHOUT THE DAY, WAKING TO FEED HIMSELF. PT EATING 50-65% OF FOOD ON TRAY. CBG AT 1146 WAS 239 AND AT 1652 WAS 246. MEDICATED WITH 4 UNITS PER EMAR. BED IN LOW POSITION, CALL LIGHT WITHIN REACH. BED ALARM ON
[2019-03-06 04:37] LABS: BASOPHILS ABSOLUTE AUTO 0.05 K/mm3 (0.00-0.23); BASOPHILS PERCENT AUTO 1 % (0-2); EOSINOPHILS ABSOLUTE AUTO 0.04 K/mm3 (0.00-0.68); EOSINOPHILS PERCENT AUTO 1 % (0-6); Hematocrit 28.3 % (37.0-53.0); Hemoglobin 9.7 g/dL (13.5-17.5); IMMATURE GRAN ABSOLUTE AUTO 0.03 K/mm3 (0.00-0.10); IMMATURE GRAN PERCENT AUTO 0 % (0-1); LYMPHOCYTES ABSOLUTE AUTO 0.83 K/mm3 (0.84-5.20); LYMPHOCYTES PERCENT AUTO 10 % (21-46); MONOCYTES ABSOLUTE AUTO 0.67 K/mm3 (0.16-1.47); MONOCYTES PERCENT AUTO 8 % (4-13); Mean Corpuscular HGB 30.9 pg (26.0-34.0); Mean Corpuscular HGB Conc 34.3 g/dL (31.5-36.5); Mean Corpuscular Volume 90 fL (80-100); Mean Platelet Volume 12.2 fL (9.1-12.4); NEUTROPHILS ABSOLUTE AUTO 6.65 K/mm3 (1.96-9.15); NEUTROPHILS PERCENT AUTO 80 % (41-73); Platelet Count 77 K/mm3 (150-400); RDW Standard Deviation 52.1 fL (35.1-46.3); Red Blood Cell Count 3.14 M/mm3 (4.30-5.90); White Blood Cell Count 8.27 K/mm3 (4.00-11.30)
[2019-03-06 04:56] LABS: Percent Saturation 28.8 % (20.0-50.0)
[2019-03-06 05:00] LABS: Albumin, Blood 3.1 g/dL (3.4-5.0); Albumin/Globulin Ratio 0.6 (0.8-1.8); Bilirubin, Total 0.7 mg/dL (0.1-1.0); Bun/Creatinine Ratio 26.2 (12.0-20.0); Calcium, Blood 8.4 mg/dL (8.5-10.1); Creatinine, Blood 2.44 mg/dL (0.60-1.20); Potassium, Blood 4.9 mmol/L (3.5-5.5); Total Protein, Blood 8.1 g/dL (6.4-8.2)
--- NOTE | 2019-03-06 05:15 | NUR ---
SHIFT SUMMARY: PT IS ALERT AND CONFUSED. PT NOT OUT OF BED OVERNIGHT, TOO WEAK TO AMBULATE AT THIS TIME. PT DID NOT USE HIS CALL LIGHT OVERNIGHT. LEDBETTER PATENT AND DRAINING YELLOW URINE. PT REPORTS PAIN ON SEVERAL OCCASIONS MEDICATED PER EMAR. PT HAD TEMP THIS AM OF 101, ATTEMPTED TO GIVE HIM TYLENOL, WAS ONLY ABLE TO GET HIM TO TAKE HALF THE ORDERED DOSE, SEEMS TOO CONFUSED AT THIS TIME. PT DENIES NAUSEA, VOMITING, AND SOB. BED IN LOW POSITION, CALL LIGHT WITHIN REACH. WILL CONTINUE TO MONITOR.
[2019-03-06 05:40] LABS: Thyroid Stimulating Hormone 1.02 uIU/mL (0.360-4.800)
--- NOTE | 2019-03-06 05:49 | NUR ---
SHIFT SUMMARY: PT IS ALERT AND CONFUSED, QUITE LETHARGIC, WAS UNABLE TO GET HIM TO TAKE ANY PO MEDICATIONS. PT NOT OUT OF BED OVERNIGHT. PT DID NOT USE HIS CALL LIGHT OVERNIGHT. PT INCONTINENT ON SEVERAL OCCASIONS, CHANGED AND CLEANED NEEDED. PT SHOWS NO S/S FOR PAIN, NAUSEA, VOMITING, OR SOB. NO ACUTE CHANGES OR COMPLICATIONS THIS SHIFT. BED IN LOW POSITION, CALL LIGHT WITHIN REACH. WILL CONTINUE TO MONITOR.
--- NOTE | 2019-03-06 17:48 | NUR ---
Comfort Care: Visited pt. He is not answering questions as he was on previous visit. I had one answer from him and he reports "no" to "are you in pain?" All other questions are unanswered. I spoke with chaplain Jackeline. She reports that he is very slow to respond. Review of chart. [facility] to [facility] to [facility]. This document is sent to palliative office and additionally, a POLST form. Both documents support comfort care decision. Call placed to Dr. Dye to report on pt's POLST form and the pt is made comfort care. Orders placed.
--- NOTE | 2019-03-06 18:37 | NUR ---
Pal Spiritual care intial note: Mr. Beatty was sleeping. He awakens slowly to voice and is slow to respond to questions. I asked him if he was aware that his body is dying? "yes." I asked him if that worried or concerned him? "No." He did not appear able to follow in-depth conversation. No family was present. He denied pain or distress. Per chart, he is non-anglican. I will remain available to pt and family.
--- NOTE | 2019-03-06 19:39 | NUR ---
RECEIVED REPORT AND ASSUMED CARE OF PATIENT. PATIENT SEEMS A BIT RESTLESS. WILL GIVE MED PER EMAR. TURNED AND CHECKED LINENS, REPOSITIONED. NO IV. PATIENT IS NON REPSONSIVE AT THIS TIME. BREATHING IS EVEN AND UNLABORED.
--- NOTE | 2019-03-06 19:57 | NUR ---
shift summary patient somnolent and difficult to arouse this shidt. patient had 2 doses of lactulose with no stool or change in level of consciousness. patient oriented only to self and following simple directions. patient changed to comfort care at the end of shift. patient sleeping and respirations shallow. no signs of distress noted. report given to maryam saravia.
--- NOTE | 2019-03-06 22:29 | NUR ---
2023 COMFORT CARE ROUND COMPLETED. PAIN MED GIVEN PER EMAR. PATIENT REPOSITIONED FOR COMFORT. BED LOW AND LOCKED. CALL PATRICK WITHIN REACH
--- NOTE | 2019-03-06 22:32 | NUR ---
COMFORT CARE ROUND COMPLETED. PATIENT DENIES PAIN AT THIS ITME. CHECKED LINENS, REPOSITIONED FOR COMFORT AND OFFERED WARM BLANKET. CALL PATRICK WITHIN REACH
--- NOTE | 2019-03-07 00:26 | NUR ---
COMFORT CARE ROUNDS COMPLETED. PT DOESNT APPEAR TO BE IN PAIN BUT IS NOT RESPONSIVE AT THIS TIME.
--- NOTE | 2019-03-07 02:32 | NUR ---
COMFORT CARE ROUND. PT IS SOMEWHAT RESTLESS GAVE ROXINAL PER EMAR AND REPOSITIONED HIM. CALL PATRICK WITHIN REACH
--- NOTE | 2019-03-07 06:26 | NUR ---
PATIENT TURNED Q2H AND HAD 2 LOOSE STOOLS THIS SHIFT. HE BECAME RESTLESS INTERMITTENTLY AND RECEIVED PAIN MEDS PER EMAR. WILL CONTINUE TO MONITOR UNTIL CARE IS PASSED TO DAY SHIFT RN
--- NOTE | 2019-03-07 07:54 | NUR ---
PT ABLE TO BE AWAKENED. GARBLED NOT ABLE TO UNDERSTND SPEACH. NOTABLE TO SWALLOW. DID NOT GIVE PO MEDS. WILL APPLY PAIN PATCH. PT HAS EYES SLIGHTLY OPEN. RESP EASY, UNLABORED. RATE 12, H/R RADIDAL IS 60. BED IN LOW POSITION, CALL LITE IN REACH, BED ALARM ON FOR SAFETY
--- NOTE | 2019-03-07 12:05 | NUR ---
NOTIFIED PT C/O BACK PAIN. WENT TO SEE PT. HE BARELY VERBAL. DID STATES BACK PN. GAVE ROXANOL PER EMAR/ OFFERED SIP JUICE. TOOK. SAID THANK-YOU. DENIES FURTHER NEEDS. BED IN LOW POSITION,C ALL LIITE IN REACH, BED ALARM ON FOR SAFETY
--- NOTE | 2019-03-07 13:14 | NUR ---
Pt visit this afternoon. Pt appears restless/agitated and confused as evidenced by tossing and turning in bed. Pt is unable to answer orientation questions appropriately. Spoke with bedside nurse Miles and discussed case. Reviewed medications and Ativan will be offered for anxiety and agitation. Spoke with resident care manager rn Eliot and discussed case. Plan is to request [facility] care to come and assess Pt. Palliative Care will remain available.
--- NOTE | 2019-03-07 13:20 | NUR ---
PT ANX. MED PER EMAR. STATES WANTED TO GO TO STORE.
--- NOTE | 2019-03-07 14:05 | NUR ---
PT WAS RESTLESS. ADMIN ATIVAN. PT NOW RESTING. EYES CLOSED. RESP EASY, UNALBORED. DID NOT AWAKEN.
--- NOTE | 2019-03-07 15:43 | NUR ---
Pal Spiritual Care note: Mr. Beatty appeared restless in bed. He seems quite weak. He said a sentance or two to me. He denied pain. He wanted to use restroom and did not want to take his lactulose. RN came in to manage symptoms. Prayer for a peaceful transition provided. I will remain available.
--- NOTE | 2019-03-07 17:46 | NUR ---
PT HAD EMESIS. HE NOT WANTING MEDS AT THIS TIME.
--- NOTE | 2019-03-07 17:49 | NUR ---
PKLT SOME ANXIETY THIS AFT. WAS MEDICATED PER EMAR. DID MKED FOR PAIN ALSO/ HAD 2 BOUTS OF EMESIS. HAVE KEPT HIM ON SIDE TO AIDE IN CLEARING IF VOMITS AGAIN. HE NOT INT IN EATING AT THIS TIME. BED IN LOW POSITION,C ALL LITE IN REACH, CALLS APROP
--- NOTE | 2019-03-07 18:00 | NUR ---
WENT TO OFFER ANTIEMETIC, PT SLEEPING. DID NOT DISTURB
--- NOTE | 2019-03-08 03:58 | NUR ---
SHIFT SUMMARY PT IS NONVERBAL. PT HAS BEEN MEDICATED DUE TO SIGNS OF DISCOMFORT. PT HAS BEEN TURNED AND CHANGED ORDERED. PT HAS BEEN SLEEPING FOR MOST OF SHIFT. PT CURRENTLY SLEEPING IN NO DISTRESS. CALL LIGHT IN REACH AND BED ALARM ON.
--- NOTE | 2019-03-08 08:00 | NUR ---
PT BARELY RESPONDS WHEN SPOKEN TO AND TURNED. LIGHT MOAN. ARMS AND LEGS ARE NOW NOT RESISTANT TO TURNING WERE YESTERDAY. EYES DO NOT TRACK. PT NOT TALKING. RESP 12, H/R 72. ATTENDS CLEAN/DRY. BED IN LOW POSITION, CALL LITE IN REACH, BED ALARM ON FOR SAFETY. NO ORAL MEDS GIVEN IS ASP RISK. DID PLACE LIDOCAIN PATCH ON BACK PER EMAR.
--- NOTE | 2019-03-08 13:14 | NUR ---
ASSUMED CARE OF PATIENT FROM TIFFANIE MOJICA RN AT THIS TIME. PATIENT APPEARS TO HAVE NO S/SX DISCOMFORT OR DISTRESS. WILL CONT TO MONITOR AND MAINTAIN PATIENT COMFORT
--- NOTE | 2019-03-08 17:55 | NUR ---
SHIFT SUMMARY ASSUMED CARE AT 1300 TODAY. PATIENT HAS BEEN UNRESPONSIVE. TURNING AND CHANGING Q2 HOURS. NO S/SX DISTRESS OR DISCOMFORT.
--- NOTE | 2019-03-08 19:33 | NUR ---
Clinical Comfort Care Visit: Pt appears to be transitioning into active dying phase. He is no longer communicating besides occasional moaning with repositioning. No mottling noted at this time. Open mouth breathing, no secretions, no agitiation. Review of notes, medications. No concerns from nursing. Assisted LEAD ANDROID DEVELOPER to turning pt. Will check pt for symptoms daily.
--- NOTE | 2019-03-09 04:51 | NUR ---
SHIFT SUMMARY PT DECREASED IN RESPONSIVENESS. PT PAIN MEDICATED PER EMAR. PT SECRETIONS SUCTIONED AND ATROPINE GIVEN. LEDBETTER PLACED FOR PT COMFORT. PT SLEEPING AND BREATHING EASY.
--- NOTE | 2019-03-09 08:08 | NUR ---
POSITIONED OFF BONY PROMINENCES FLOATED ON PILLOWS; SUCTION PREFORMED FOR SECRETIONS AND ATROPINE GTT'S GIVEN. PT APPEARS COMFORTABLE. ORAL CARE PROVIDED. LEDBETTER IN PLACE DRAINING YELLOW/PATRICIA URINE.
--- NOTE | 2019-03-09 13:19 | NUR ---
NO CHANGE FROM PREVIOUS ASSESSMENT; SUCTION FOR COMFORT. RR SLIGHTLY LABORED. REPOSITIONED OFF BONY PROMINENCES.
--- NOTE | 2019-03-09 13:25 | NUR ---
Comfort Care: Pt appears imminent. He now has secretions. Kelsi, nurse, states that pt is unresponsive to deep suctioning. She has placed a scopolamine patch on pt today to treat symptom. No pain assessed, no mottling noted however, pt's toes are cool to touch. Pt's hands warm. Actively dying phase. Will remain available. Meds and notes reviewed at this time.
--- NOTE | 2019-03-09 15:46 | NUR ---
NO CHANGE FROM PREVIOUS ASSESSMENT. RR 14-16 WITH GIRGLING. PRN GIVEN FOR SECRETIONS. REPOSITIONED.
--- NOTE | 2019-03-09 16:58 | NUR ---
TOD 1658 NO APICAL PULSE AUSCULTATED. PT FOUND NOT BREATHING. END OF LIFE CARE IN PROGRESS BY STOREROOM KEEPER. ATTEMPT TO CONTACT PT'S SON REVEALED PHONE NUMBER GIVEN IS NO LONGER IN SERVICE OR HAS BEEN CHANGED. [employer], DR. MAURO AND SARKIS PALLIATIVE CARE RN NOTIFIED.
--- NOTE | 2019-03-09 17:48 | NUR ---
MULTIPLE ATTEMPTS MADE TO CONTACT PT'S SON PANCHITO KIMBLE, PHONE NUMBER LISTED [phone] ON FACE SHEET, TO NOTIFY OF HIS FATHER'S PASSING. PHONE NUMBER IS DISCONNECTED. SPOKE WITH THE [facility] (MAN) TO SEE IF THEY HAD ANY FURTHER CONTACT INFORMATION FOR THE PT. MAN STATES THEY HAD THE SAME NAME AND NUMBER WE HAD LISTED FOR NEXT OF KIN. THIS RN ALSO ATTEMPTED TO CALL THE PT'S LISTED HOME PHONE ([phone]) BUT WAS GREETED BY A GENTLEMAN NAMED CARTER WHO STATED HE DID NOT KNOW ANYONE BY THE NAME OF [place]. PALLIATIVE CARE RN SARKIS STATES THAT THEY HAVE FAILED AT MAKING CONTACT WITH FAMILY IN THE RECENT WEEKS WELL. NOTIFIED NURSING MASTER SHIP ELA OF THE ABOVE INFORMATION. PER ELA, WHEN THE DONOR LINE RETURNS CALL FOR THE PT, CALL THE MORTUARY NEXT UP.
== END 2019-03-09 16:58 ==
LOC: ER 17:59 → MEDS 18:00
PROVIDERS: Internal Medicine; ADMIT Internal Medicine
DX: K74.60 Unspecified cirrhosis of liver (principal); R18.8 Other ascites; K72.90 Hepatic failure, unspecified without coma; E66.01 Morbid (severe) obesity due to excess calories; M54.9 Dorsalgia, unspecified; G89.29 Other chronic pain; I25.10 Atherosclerotic heart disease of native coronary artery without angina pectoris; E11.22 Type 2 diabetes mellitus with diabetic chronic kidney disease; I12.9 Hypertensive chronic kidney disease with stage 1 through stage 4 chronic kidney disease, or unspecified chronic kidney disease; N18.4 Chronic kidney disease, stage 4 (severe); D63.1 Anemia in chronic kidney disease; M17.0 Bilateral primary osteoarthritis of knee; E87.2 Acidosis; G93.40 Encephalopathy, unspecified; R26.89 Other abnormalities of gait and mobility; Z87.891 Personal history of nicotine dependence; Z79.84 Long term (current) use of oral hypoglycemic drugs; Z79.899 Other long term (current) drug therapy; Z88.5 Allergy status to narcotic agent; Z88.8 Allergy status to other drugs, medicaments and biological substances; Z91.040 Latex allergy status; Z68.34 Body mass index [BMI] 34.0-34.9, adult
CPT/HCPCS: 36415; 72110; 80053; 82140; 82607; 82728; 82746; 82947; 83540; 83550; 84443; 85025; 93005; 93010; 96372; 97110; 97162; 97166; 97530; 99284-25; A9270; G0378; J1650